=== PATIENT | female | born 1945 | race Caucasian/White ===

== ENCOUNTER 2017-03-18 11:21 | Inpatient (IN) | payer BC ==
[2017-03-18 11:53] VITALS: BMI 26.6
--- NOTE | 2017-03-18 13:46 | HP ---
CIWA Score - CIWA Score Nausea/Vomitin-No Nausea/No Vomiting Muscle Tremors: 4-Moderate,w/Arms Extend Anxiety: 4-Mod. Anxious/Guarded Agitation: 0-Normal Activity Paroxysmal Sweats: 3 Orientation: 0-Oriented Tacttile Disturbances: 1-Very Mild Itch/Numbness Auditory Disturbances: 1-Very Mild Visual Disturbances: 2-Mild Sensitivity Headache: 0-None Present CIWA-Ar Total Score: 15 Admission ROS S - HPI Chief Complaint: I am here for alcohol detox Allergies/Adverse Reactions: Allergies Allergy/AdvReac Type Severity Reaction Status Date / Time Penicillins Allergy Intermediate Rash Verified 03/18/17 13:09 History of Present Illness: 71 yo female with alcohol dependence x 9 years with an average of 10 - 12 [place] Lights per day, and hx of Hypothyroid, Hyperlipidemia, Paranoid Schizophrenia, Depression. Reports no prior hx of detox or rehab. 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) Musculoskeletal: reports: Joint Pain Integumentary: reports: No Symptoms Reported, Other (enial Linchen sclerosis, rosecia) Neuro: reports: Numbness (fingers b/t), Tingling Endocrine: reports: No Symptoms Reported Hematology: reports: No Symptoms Reported Psychiatric: reports: Orientated x3, Anxious, Depressed Other Systems: Reviewed and Negative Patient History - Patient Medical History Hx Anemia: No Hx Asthma: No Hx Chronic Obstructive Pulmonary Disease (COPD): No Hx Cancer: Yes (hx of 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 ) Hx Cardiac Disorders: No Hx Congestive Heart Failure: No Hx Hypertension: No Hx Hypercholesterolemia: Yes Hx Pacemaker: No HX Cerebrovascular Accident: No Hx Seizures: Yes (1982 hx drug induced seizure ) Hx Dementia: No Hx Diabetes: No Hx Gastrointestinal Disorders: Yes (GERD ) Hx Liver Disease: No Hx Genitourinary Disorders: No Hx Sexually Transmitted Disorders: No Hx Renal Disease (ESRD): No Hx Thyroid Disease: Yes (Hypothyroid) Hx Human Immunodeficiency Virus (HIV): No Hx Hepatitis C: No Hx Depression: No Hx Suicide Attempt: No Hx Bipolar Disorder: No Hx Schizophrenia: Yes (paranoid) - Patient Surgical History Past Surgical History: No Hx Neurologic Surgery: No Hx Cataract Extraction: No Hx Cardiac Surgery: No Hx Lung Surgery: No Hx Breast Surgery: No Hx Breast Biopsy: No Hx Abdominal Surgery: No Hx Appendectomy: No Hx Cholecystectomy: No Hx Genitourinary Surgery: No Hx Section: No Hx Orthopedic Surgery: No Hx Hysterectomy: No Other Surgical History: tonsilectomy, skin CA removal Anesthesia Reaction: No - PPD History Previous Implant?: Yes Documented Results: Negative w/o proof Implanted On Prior R Admission?: No PPD to be Administered?: Yes - Reproductive History Patient is a Female of Child Bearing Age (11 -55 yrs old): No (71 yo female ) - Smoking Cessation Smoking history: Never smoked - Substances Abused Alcohol Route: Oral Frequency: Daily Amount used: beer(10-12 oz cans) Age of first use: 24 Date of Last Use: 03/17/17 Family Disease History - Family Disease History Family Disease History: Other: Father (, Liver Cirrhosis, alcoholic), Mother (, Multiple Sclerosis ) Admission Physical Exam BHS - Vital Signs Vital Signs: Vital Signs - 24 hr 03/18/17 11:51 Temperature 96.9 F L Pulse Rate 79 Respiratory 18 Rate Blood Pressure 166/76 - Physical General Appearance: Yes: Anxious HEENTM: Yes: Hearing grossly Normal, Normal ENT Inspection, Normocephalic, Normal Voice, MAX, Pharynx Normal, Other (poor dentation) Respiratory: Yes: Chest Non-Tender, Lungs Clear, Normal Breath Sounds, No Respiratory Distress, No Accessory Muscle Use Neck: Yes: Within Normal Limits, No masses,lesions,Nodules, Trachea in good position Breast: Yes: Breast Exam Deferred Cardiology: Yes: Regular Rhythm, Regular Rate, S1, S2 Abdominal: Yes: Within Normal Limits, Normal Bowel Sounds, Non Tender, Flat, Soft Genitourinary: Yes: Within Normal Limits Back: Yes: Within Normal Limits, Normal Inspection Musculoskeletal: Yes: Within Normal Limits, full range of Motion, Gait Steady Extremities: Yes: Within Normal Limits, Normal Capillary Refill, Normal Inspection, Normal Range of Motion, Non-Tender Neurological: Yes: rn clinical resource II-XII NML intact, Fully Oriented, Alert, Motor Strength 5/5, Normal Response, Depressed Affect Integumentary: Yes: Within Normal Limits, Normal Color, Dry, Warm Lymphatic: Yes: Within Normal Limits - Diagnostic (1) Alcohol dependence with withdrawal Current Visit: Yes Status: Acute Qualifiers: Complication of substance-induced condition: uncomplicated Qualified Code(s ): F10.230 - Alcohol dependence with withdrawal, uncomplicated (2) Hypothyroid Current Visit: Yes Status: Chronic (3) Anxious appearance Current Visit: Yes Status: Acute (4) Hyperlipidemia Current Visit: Yes Status: Chronic (5) Psychiatric disorder Current Visit: Yes Status: Chronic Cleared for Admission [facility] - Detox or Rehab [facility] Level of Care: Medically Managed Detox Regimen/Protocol: Librium [facility] Breath Alcohol Content Breath Alcohol Content: 0 Urine Pregancy Test - Result Urine Test Results: Negative- NO Line Present Urine Drug Screen - Results Drug Screen Negative: Yes
[2017-03-18] MEDS ORDERED: MENTHOL/PHENOL 1 EACH UD MM PRN (14:12)
[2017-03-18] MEDS ORDERED: P-EPHED 60MG/TRIPROLIDI 2.5MG TABLET PO PRN (14:12)
[2017-03-18] MEDS ORDERED: guaiFENesin/D-METHORPHAN HB 10 ML UNIT-DOSE CUPS PO PRN (14:12)
[2017-03-18] MEDS ORDERED: LOPERAMIDE HCL 2 MG CAPSULE PO PRN (14:12)
[2017-03-18] MEDS ORDERED: IBUPROFEN 400 MG TABLET (FP) PO PRN (14:12)
[2017-03-18] MEDS ORDERED: MAG HYDROX/AL HYDROX/SIMETH 30 ML UNIT-DOSE CUP PO PRN (14:12)
[2017-03-18] MEDS ORDERED: MAGNESIUM HYDROX 2400MG/30ML ORAL SUSPENSION 30 ML CUP PO PRN (14:12)
[2017-03-18] MEDS ORDERED: hydrOXYzine PAMOATE 50 MG CAPSULE (FP) PO PRN (14:12)
[2017-03-18] MEDS ORDERED: MAGNESIUM CITRATE 300 ML BOTTLE PO PRN (14:12)
[2017-03-18] MEDS ORDERED: ACETAMINOPHEN 325 MG TABLET (FP) PO PRN (14:12)
[2017-03-18] MEDS ORDERED: chlordiazePOXIDE HCL 25 MG CAPSULE PO PRN (14:12)
[2017-03-18] MEDS: chlordiazePOXIDE HCL 25 MG CAPSULE PO ONE ×2 (17:32→17:54)
[2017-03-18] MEDS: chlordiazePOXIDE HCL 25 MG CAPSULE PO SCH ×2 (17:41→22:55)
[2017-03-18] MEDS: CYANOCOBALAMIN 1,000 MCG TABLET (FP) PO SCH (18:02)
[2017-03-18] MEDS: THIAMINE HCL 100 MG TABLET (FP) PO SCH (22:55)
[2017-03-18] MEDS: ATORVASTATIN CA 20 MG TABLET (FP) PO SCH (22:56)
[2017-03-19] MEDS: chlordiazePOXIDE HCL 25 MG CAPSULE PO SCH ×4 (05:19→22:19)
[2017-03-19] MEDS ORDERED: LEVOTHYROXINE NA 50 MCG TABLET (FP) PO SCH (07:00)
[2017-03-19] MEDS: LEVOTHYROXINE NA 25 MCG TABLET (FP) PO SCH (07:51)
--- NOTE | 2017-03-19 08:51 | EKG ---
Test Reason : Blood Pressure : / mmHG Vent. Rate : 083 BPM Atrial Rate : 083 BPM P-R Int : 202 ms QRS Dur : 066 ms QT Int : 360 ms P-R-T Axes : 047 026 079 degrees QTc Int : 423 ms NORMAL SINUS RHYTHM LOW VOLTAGE QRS BORDERLINE ECG NO PREVIOUS ECGS AVAILABLE Confirmed by Arsh Lucero ([id number]) on 03/19/2017 8:51:31 AM Referred By: Jhonatan Araujo Confirmed By:Arsh Lucero
--- NOTE | 2017-03-19 09:43 | CONSULT ---
[facility] Psychiatric Consult - Data Date of interview: 03/19/17 Admission source: [facility] Identifying data: This is 71 years old female with Schozpjrenia, with history of psychiatric hospitalizations, intoxicated with: Alcohol, Substance Abuse History: - Smoking Cessation. Smoking history: Never smoked. - Substances Abused. Alcohol. Route: Oral. Frequency: Daily. Amount used : beer(10-12 oz cans). Age of first use: 24. Date of Last Use: 03/17/17 Medical History: Hypothyroidism, Hyperlipidemia Psychiatric History: Patient suffers from Paranoid Schizophrenia with most recent psychiatric hospitalization on 2009 [facility]. currently stable on [id number] 100mg poqd. Trazodone 50mg po qhs. Trilafon 4mg poqd Physical/Sexual Abuse/Trauma History: Denies Additional Comment: 100mg poqd. Trazodone 50mg po qhs. Trilafon 4mg poqd Mental Status Exam - Mental Status Exam Alert and Oriented to: Person Cognitive Function: Fair Patient Appearance: Unkempt Mood: Anxious Affect: Euthymic Patient Behavior: Cooperative Speech Pattern: Delayed Voice Loudness: Mildly Soft/Quiet Thought Process: Circumstantial, Goal Oriented Thought Disorder: Being Controlled Hallucinations: Denies Suicidal Ideation: Denies Homicidal Ideation: Denies Insight/Judgement: Fair Sleep: Difficulty falling asleep Appetite: Weight gain Muscle strength/Tone: Mild Hypotonicity Gait/Station: Shuffling Additional Comments: 100mg poqd. Trazodone 50mg po qhs. Trilafon 4mg poqd Psychiatric Findings - Problem List ([place] 1, 2,3) (1) Paranoid schizophrenia Current Visit: Yes Status: Acute (2) Alcohol dependence with withdrawal Current Visit: Yes Status: Acute Qualifiers: Complication of substance-induced condition: uncomplicated Qualified Code(s ): F10.230 - Alcohol dependence with withdrawal, uncomplicated (3) Hyperlipidemia Current Visit: Yes Status: Chronic (4) Hypothyroid Current Visit: Yes Status: Chronic (5) Psychiatric disorder Current Visit: Yes Status: Chronic - Initial Treatment Plan Initial Treatment Plan: 100mg poqd. Trazodone 50mg po qhs. Trilafon 4mg poqd
[2017-03-19 10:22] LABS: HEMATOCRIT 40.1 % (32.4-45.2); HEMOGLOBIN 13.3 GM/dL (10.7-15.3); MCH 30.7 pg (25.7-33.7); MCHC 33.2 g/dl (32.0-36.0); MEAN CELL VOLUME 92.6 fl (80-96); MEAN PLT VOLUME 7.8 fl (7.5-11.1); PLATELET COUNT 183 K/MM3 (134-434); RBC 4.33 M/mm3 (3.60-5.2); RDW 13.4 % (11.6-15.6)
[2017-03-19 10:24] LABS: ALBUMIN 3.7 g/dl (3.4-5.0); ALK PHOS 117 U/L (45-117); ANION GAP 7 (8-16); BILIRUBIN,TOTAL 0.3 mg/dL (0.2-1.0); BLOOD UREA NITROGEN 13 mg/dL (7-18); CALCIUM 8.4 mg/dL (8.5-10.1); CHLORIDE 102 mmol/L (98-107); CO2 28 mmol/L (21-32); CREATININE 0.8 mg/dL (0.55-1.02); GLUCOSE,RANDOM 98 mg/dL (74-106); POTASSIUM 4.5 mmol/L (3.5-5.1); SGOT/AST 15 U/L (15-37); SGPT/ALT 26 U/L (12-78); SODIUM 137 mmol/L (136-145); TOT PROT 6.8 g/dl (6.4-8.2)
[2017-03-19] MEDS: CYANOCOBALAMIN 1,000 MCG TABLET (FP) PO SCH (10:58)
[2017-03-19] MEDS: PANTOPRAZOLE 40 MG TABLET (FP) PO SCH (10:58)
[2017-03-19] MEDS: PRENATAL VITAMINS W/ FOLIC ACID TABLET (FP) PO SCH (10:58)
--- NOTE | 2017-03-19 14:36 | PN ---
S CIWA - CIWA Score Nausea/Vomitin Muscle Tremors: 4-Moderate,w/Arms Extend Anxiety: 4-Mod. Anxious/Guarded Agitation: 4-Moderately Restless Paroxysmal Sweats: 2 Orientation: 0-Oriented Tacttile Disturbances: 0-None Auditory Disturbances: 0-None Visual Disturbances: 0-None Headache: 0-None Present CIWA-Ar Total Score: 17 BHS Progress Note (SOAP) Subjective: shakes sleep disturbance jittery Objective: 03/19/17 14:35 Vital Signs Temperature 97.9 F 03/19/17 09:26 Pulse Rate 86 03/19/17 09:26 Respiratory Rate 18 03/19/17 09:26 Blood Pressure 147/72 03/19/17 09:26 O2 Sat by Pulse Oximetry (%) Laboratory Last Values WBC 5.0 K/mm3 (4.0-10.0) 03/19/17 07:00 RBC 4.33 M/mm3 (3.60-5.2) 03/19/17 07:00 Hgb 13.3 GM/dL (10.7-15.3) 03/19/17 07:00 Hct 40.1 % (32.4-45.2) 03/19/17 07:00 MCV 92.6 fl (80-96) 03/19/17 07:00 MCH 30.7 pg (25.7-33.7) 03/19/17 07:00 MCHC 33.2 g/dl (32.0-36.0) 03/19/17 07:00 RDW 13.4 % (11.6-15.6) 03/19/17 07:00 Plt Count 183 K/MM3 (134-434) 03/19/17 07:00 MPV 7.8 fl (7.5-11.1) 03/19/17 07:00 Sodium 137 mmol/L (136-145) 03/19/17 07:00 Potassium 4.5 mmol/L (3.5-5.1) 03/19/17 07:00 Chloride 102 mmol/L (98-107) 03/19/17 07:00 Carbon Dioxide 28 mmol/L (21-32) 03/19/17 07:00 Anion Gap 7 (8-16) L 03/19/17 07:00 BUN 13 mg/dL (7-18) 03/19/17 07:00 Creatinine 0.8 mg/dL (0.55-1.02) 03/19/17 07:00 Creat Clearance w eGFR > 60 (>60) 03/19/17 07:00 Random Glucose 98 mg/dL (74-106) 03/19/17 07:00 Calcium 8.4 mg/dL (8.5-10.1) L 03/19/17 07:00 Total Bilirubin 0.3 mg/dL (0.2-1.0) 03/19/17 07:00 AST 15 U/L (15-37) 03/19/17 07:00 ALT 26 U/L (12-78) 03/19/17 07:00 Alkaline Phosphatase 117 U/L (45-117) 03/19/17 07:00 Total Protein 6.8 g/dl (6.4-8.2) 03/19/17 07:00 Albumin 3.7 g/dl (3.4-5.0) 03/19/17 07:00 RPR Titer Nonreactive (NONREACTIVE) 03/19/17 07:00 HIV 1&2 Antibody Screen Negative 03/19/17 07:00 HIV P24 Antigen Negative 03/19/17 07:00 labs noted Assessment: 03/19/17 14:36 withdrawal sx Plan: continue detox
[2017-03-19] MEDS: THIAMINE HCL 100 MG TABLET (FP) PO SCH (22:19)
[2017-03-19] MEDS: ATORVASTATIN CA 20 MG TABLET (FP) PO SCH (22:19)
[2017-03-20] MEDS: chlordiazePOXIDE HCL 25 MG CAPSULE PO SCH ×2 (05:34→10:47)
[2017-03-20] MEDS: LEVOTHYROXINE NA 25 MCG TABLET (FP) PO SCH (06:35)
[2017-03-20] MEDS: CYANOCOBALAMIN 1,000 MCG TABLET (FP) PO SCH (10:47)
[2017-03-20] MEDS: PRENATAL VITAMINS W/ FOLIC ACID TABLET (FP) PO SCH (10:47)
[2017-03-20] MEDS: PANTOPRAZOLE 40 MG TABLET (FP) PO SCH (10:47)
--- NOTE | 2017-03-20 14:38 | PN ---
S CIWA - CIWA Score Nausea/Vomitin Muscle Tremors: 2 Anxiety: 3 Agitation: 2 Paroxysmal Sweats: No Perspiration Orientation: 0-Oriented Tacttile Disturbances: 0-None Auditory Disturbances: 0-None Visual Disturbances: 0-None Headache: 2-Mild CIWA-Ar Total Score: 12 BHS Progress Note (SOAP) Objective: 03/20/17 14:37 Laboratory Tests 03/18/17 03/19/17 03/19/17 07:00 07:00 07:00 WBC 5.0 RBC 4.33 Hgb 13.3 Hct 40.1 MCV 92.6 MCH 30.7 MCHC 33.2 RDW 13.4 Plt Count 183 MPV 7.8 Sodium 137 Potassium 4.5 Chloride 102 Carbon Dioxide 28 Anion Gap 7 L BUN 13 Creatinine 0.8 Creat Clearance w eGFR > 60 Random Glucose 98 Calcium 8.4 L Total Bilirubin 0.3 AST 15 ALT 26 Alkaline Phosphatase 117 Total Protein 6.8 Albumin 3.7 RPR Titer Hepatitis C Antibody <0.1 HIV 1&2 Antibody Screen HIV P24 Antigen 03/19/17 03/19/17 07:00 07:00 WBC RBC Hgb Hct MCV MCH MCHC RDW Plt Count MPV Sodium Potassium Chloride Carbon Dioxide Anion Gap BUN Creatinine Creat Clearance w eGFR Random Glucose Calcium Total Bilirubin AST ALT Alkaline Phosphatase Total Protein Albumin RPR Titer Nonreactive Hepatitis C Antibody HIV 1&2 Antibody Screen Negative HIV P24 Antigen Negative Vital Signs - 24 hr 03/19/17 03/19/17 03/19/17 14:42 18:39 23:12 Temperature 95.2 F L 98.6 F 98.1 F Pulse Rate 84 81 84 Respiratory 20 18 18 Rate Blood Pressure 153/74 124/75 161/70 03/20/17 03/20/17 03/20/17 00:30 03:30 06:00 Temperature 97.5 F L Pulse Rate 78 Respiratory 18 18 18 Rate Blood Pressure 149/75 03/20/17 09:39 Temperature 97.8 F Pulse Rate 90 Respiratory 18 Rate Blood Pressure 140/77 Assessment: 03/20/17 14:37 ongoing withdrawal Plan: continue detox protocol
[2017-03-20] MEDS: chlordiazePOXIDE 5 MG CAPSULE PO SCH ×2 (17:25→22:25)
[2017-03-20] MEDS: ATORVASTATIN CA 20 MG TABLET (FP) PO SCH (22:25)
[2017-03-20] MEDS: THIAMINE HCL 100 MG TABLET (FP) PO SCH (22:25)
[2017-03-21] MEDS: LEVOTHYROXINE NA 25 MCG TABLET (FP) PO SCH (06:07)
[2017-03-21] MEDS: chlordiazePOXIDE 5 MG CAPSULE PO SCH ×2 (06:07→10:54)
[2017-03-21] MEDS: PRENATAL VITAMINS W/ FOLIC ACID TABLET (FP) PO SCH (10:54)
[2017-03-21] MEDS: CYANOCOBALAMIN 1,000 MCG TABLET (FP) PO SCH (10:54)
[2017-03-21] MEDS: PANTOPRAZOLE 40 MG TABLET (FP) PO SCH (10:54)
--- NOTE | 2017-03-21 15:56 | PN ---
BHS Progress Note (SOAP) Subjective: cold sweats, tired Objective: 03/21/17 15:55 Vital Signs Temperature 97.7 F 03/21/17 13:23 Pulse Rate 95 H 03/21/17 13:23 Respiratory Rate 18 03/21/17 13:23 Blood Pressure 135/56 03/21/17 13:23 O2 Sat by Pulse Oximetry (%) pt aox3 in nad ambulating Assessment: 03/21/17 15:55 withdrawal sx;s Plan: continue detox increase fluids d/c in am
[2017-03-21] MEDS: chlordiazePOXIDE HCL 10 MG CAPSULE PO SCH ×2 (17:46→22:28)
--- NOTE | 2017-03-21 18:05 | PN ---
JITENDRA Progress Note Note: Psychiatric nurse practitioner note: Family Preservation Caseworker approached patient concerning her psychiatric medications. Reports currently taking zoloft 100mg po daily, Trilafon 4mg qhs, and trazodone 50mg qhs. Patient's pharmacy contacted and able to verify patient's medications. Reports recently taking her medications on Sunday. Medications ordered. Verbal consent given. Will continue to monitor.
[2017-03-21] MEDS ORDERED: traZODone HCL 50 MG TABLET (FP) PO SCH (22:00)
[2017-03-21] MEDS ORDERED: PERPHENAZINE 4 MG TABLET PO SCH (22:00)
[2017-03-21] MEDS: THIAMINE HCL 100 MG TABLET (FP) PO SCH (22:28)
[2017-03-21] MEDS: ATORVASTATIN CA 20 MG TABLET (FP) PO SCH (22:29)
[2017-03-22] MEDS: chlordiazePOXIDE HCL 10 MG CAPSULE PO SCH (05:59)
[2017-03-22] MEDS: LEVOTHYROXINE NA 25 MCG TABLET (FP) PO SCH (06:00)
[2017-03-22 06:36] VITALS: TEMP 97.2
[2017-03-22 09:51] VITALS: BP 135/67; PULSE 93
[2017-03-22] MEDS ORDERED: SERTRALINE HCL 50 MG TABLET (FP) PO SCH (10:00)
--- NOTE | 2017-03-22 11:52 | DS ---
[facility] Detox Discharge Summary Admission Date: 03/18/17 Discharge Date: 03/22/17 - History Present History: Alcohol Dependence - Physical Exam Results Vital Signs: Vital Signs Temperature 97.2 F L 03/22/17 09:51 Pulse Rate 93 H 03/22/17 09:51 Respiratory Rate 18 03/22/17 09:51 Blood Pressure 135/67 03/22/17 09:51 O2 Sat by Pulse Oximetry (%) Pertinent Admission Physical Exam Findings: withdrawal sx Laboratory Last Values WBC 5.0 K/mm3 (4.0-10.0) 03/19/17 07:00 RBC 4.33 M/mm3 (3.60-5.2) 03/19/17 07:00 Hgb 13.3 GM/dL (10.7-15.3) 03/19/17 07:00 Hct 40.1 % (32.4-45.2) 03/19/17 07:00 MCV 92.6 fl (80-96) 03/19/17 07:00 MCH 30.7 pg (25.7-33.7) 03/19/17 07:00 MCHC 33.2 g/dl (32.0-36.0) 03/19/17 07:00 RDW 13.4 % (11.6-15.6) 03/19/17 07:00 Plt Count 183 K/MM3 (134-434) 03/19/17 07:00 MPV 7.8 fl (7.5-11.1) 03/19/17 07:00 Sodium 137 mmol/L (136-145) 03/19/17 07:00 Potassium 4.5 mmol/L (3.5-5.1) 03/19/17 07:00 Chloride 102 mmol/L (98-107) 03/19/17 07:00 Carbon Dioxide 28 mmol/L (21-32) 03/19/17 07:00 Anion Gap 7 (8-16) L 03/19/17 07:00 BUN 13 mg/dL (7-18) 03/19/17 07:00 Creatinine 0.8 mg/dL (0.55-1.02) 03/19/17 07:00 Creat Clearance w eGFR > 60 (>60) 03/19/17 07:00 Random Glucose 98 mg/dL (74-106) 03/19/17 07:00 Calcium 8.4 mg/dL (8.5-10.1) L 03/19/17 07:00 Total Bilirubin 0.3 mg/dL (0.2-1.0) 03/19/17 07:00 AST 15 U/L (15-37) 03/19/17 07:00 ALT 26 U/L (12-78) 03/19/17 07:00 Alkaline Phosphatase 117 U/L (45-117) 03/19/17 07:00 Total Protein 6.8 g/dl (6.4-8.2) 03/19/17 07:00 Albumin 3.7 g/dl (3.4-5.0) 03/19/17 07:00 RPR Titer Nonreactive (NONREACTIVE) 03/19/17 07:00 Hepatitis C Antibody <0.1 s/co ratio (0.0-0.9) 03/18/17 07:00 HIV 1&2 Antibody Screen Negative 03/19/17 07:00 HIV P24 Antigen Negative 03/19/17 07:00 lab noted - Treatment Hospital Course: Detox Protocol Followed, Detoxed Safely, Responded well, Discharged Condition Good, Rehab Referral Accepted Patient has Accepted a Rehab Referral to: aftercare as per counselor arranged - Medication Discharge Medications: Ambulatory Orders Atorvastatin Ca [Lipitor] 20 mg PO DAILY 03/18/17 Cyanocobalamin [Vitamin B12 -] 1,000 mcg PO DAILY 03/18/17 Esomeprazole Magnesium 40 mg PO DAILY 03/18/17 Levothyroxine [Synthroid -] 50 mcg PO DAILY 03/18/17 Multivit-Min/Iron Fum/Folic AC [Arivy-Wanuyan-Fsrdvkrl Tablet] 1 each PO DAILY 03/18/17 Perphenazine [Trilafon] 4 mg PO DAILY 03/18/17 Sertraline HCl [Zoloft -] 100 mg PO DAILY 03/18/17 Trazodone HCl [Desyrel -] 50 mg PO HS 03/18/17 - AMA Did Patient Leave Against Medical Advice: No
== END 2017-03-22 11:00 | disposition home or self-care (01) | DRG 897 ==
LOC: YASAS 11:21 → Y6N 16:11
PROVIDERS: ADMIT Internal Medicine; ATTEND Internal Medicine
PROC: HZ2ZZZZ Detoxification Services for Substance Abuse Treatment (ICD-10-PCS; principal; 2017-03-18)
DX: F10.230 Alcohol dependence with withdrawal, uncomplicated (principal); F20.0 Paranoid schizophrenia; E78.5 Hyperlipidemia, unspecified; E30.9 Disorder of puberty, unspecified; K21.9 Gastro-esophageal reflux disease without esophagitis; Z85.828 Personal history of other malignant neoplasm of skin; Z88.0 Allergy status to penicillin; Z86.69 Personal history of other diseases of the nervous system and sense organs
CPT/HCPCS: 36415; 80053; 85027; 86593; 86803; 87389; 93005; 93010

== ENCOUNTER 2019-09-01 10:48 | Inpatient (IN) | payer OTHER ==
--- NOTE | 2019-09-01 11:23 | BHS.RME ---
Substance Use & Tx History - Substance Use History Alcohol Substance amount: 10-17 beers Frequency of use: Daily Substance route: Oral Date of Last Use: 08/31/19 Physical/Psych/Mental Status - Behavior General Behavior: Increased activity (restlessness, agitation) Eye Contact: Normal - Cooperativeness Cooperativeness: Cooperative - Thinking Thought Processes: Tight, Logical, Goal Directed - Physical Health Problems Is patient presently having any pain?: No Does patient presently have any injuries (include location): No Does patient currently have a fever: No Is patient : No CIWA Nausea/Vomitin-No Nausea/No Vomiting Muscle Tremors: 2 Anxiety: 3 Agitation: 2 Paroxysmal Sweats: 5 Orientation: 0-Oriented Tacttile Disturbances: 0-None Auditory Disturbances: 0-None Visual Disturbances: 0-None Headache: 2-Mild CIWA-Ar Total Score: 14
--- NOTE | 2019-09-01 12:10 | HP ---
CIWA Score Nausea/Vomitin-No Nausea/No Vomiting Muscle Tremors: 2 Anxiety: 3 Agitation: 2 Paroxysmal Sweats: 5 Orientation: 0-Oriented Tacttile Disturbances: 0-None Auditory Disturbances: 0-None Visual Disturbances: 0-None Headache: 2-Mild CIWA-Ar Total Score: 14 - Admission Criteria [facility] Guidelines: Admission for Medically Managed Detox: Requires at least one of the followin. CIWA greater than 12 2. Seizures within the past 24 hours 3. Delirium tremens within the past 24 hours 4. Hallucinations within the past 24 hours 5. Acute intervention needed for co occurring medical disorder 6. Acute intervention needed for co occurring psychiatric disorder 7. Severe withdrawal that cannot be handled at a lower level of care (continued vomiting, continued diarrhea, abnormal vital signs) requiring intravenous medication and/or fluids 8. Admitting History and Physical - Admission Chief Complaint: Ms. Iglesias is a 74 yo woman who presents to [facility] stating "I want to stop drinking". History of Present Illness: Ms. Iglesias is a 74 yo woman who presents to [facility] stating "I want to stop drinking". She last completed detox in February 2017. She relapsed immediately upon discharge. PMH: hypothyroidism, HLD, fatty liver, chronic diarrhea PSH: Breast biopsy, benign Psych: paranoid schizophrenia, Trazadone, Serteraline, perfenazine SOIC: lives [facility] in [place], drinks as well Legal: none Substance Use History Alcohol Substance amount: 10-17 beers Frequency of use: Daily Substance route: Oral Date of Last Use: 08/31/19 Began drinking age 24y. No hx of seizures. Has had syncopal spell 5 monts ago. 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 Meets criteria for admission due to high risk of relapse, comorbid psychiatric disorder History Source: Patient Limitations to Obtaining History: No Limitations - Smoking History Smoking history: Never smoked Admission [facility] Allergies/Adverse Reactions: Allergies Allergy/AdvReac Type Severity Reaction Status Date / Time Penicillins Allergy Intermediate Rash Verified 03/18/17 13:09 Exam Limitations: No Limitations - Ebola screening Have you traveled outside of the country in the last 21 days: No Have you been sick,other than usual withdrawal symptoms: No Do you have a fever: No - Review of Systems Constitutional: No Symptoms Reported EENT: reports: No Symptoms Reported Respiratory: reports: No Symptoms reported Cardiac: reports: No Symptoms Reported GI: reports: Diarrhea (3-4 x per day, since January 2019, Dr. Justice (GI) told pt related to beer intake) : reports: Incontinence (stress incontinence) Musculoskeletal: reports: No Symptoms Reported Integumentary: reports: Other (rosacea) Neuro: reports: Headache Endocrine: reports: Other (saw PCP August 04, told labs normal) Hematology: reports: No Symptoms Reported Psychiatric: reports: Anxious Patient History - Patient Medical History Hx Anemia: No Hx Asthma: No Hx Chronic Obstructive Pulmonary Disease (COPD): No Hx Cancer: Yes (hx of 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 ) Hx Cardiac Disorders: No Hx Congestive Heart Failure: No Hx Hypertension: No Hx Hypercholesterolemia: Yes Hx Pacemaker: No HX Cerebrovascular Accident: No Hx Seizures: Yes (1982 drug induced seizure ) Hx Dementia: No Hx Diabetes: No Hx Gastrointestinal Disorders: Yes (GERD ) Hx Liver Disease: No Hx Genitourinary Disorders: No Hx Sexually Transmitted Disorders: No Hx Renal Disease (ESRD): No Hx Thyroid Disease: Yes (Hypothyroid) Hx Human Immunodeficiency Virus (HIV): No Hx Hepatitis C: No Hx Depression: No Hx Suicide Attempt: No Hx Bipolar Disorder: No Hx Schizophrenia: Yes (paranoid) - Patient Surgical History Past Surgical History: No Hx Neurologic Surgery: No Hx Cataract Extraction: No Hx Cardiac Surgery: No Hx Lung Surgery: No Hx Breast Surgery: No Hx Breast Biopsy: No Hx Abdominal Surgery: No Hx Appendectomy: No Hx Cholecystectomy: No Hx Genitourinary Surgery: No Hx Section: No Hx Orthopedic Surgery: No Hx Hysterectomy: No Other Surgical History: tonsilectomy, skin CA removal Anesthesia Reaction: No - PPD History Date: 03/20/17 - Smoking Cessation Smoking history: Never smoked Admission Physical Exam BHS - Physical General Appearance: Yes: Anxious HEENTM: Yes: EOMI, Hearing grossly Normal, Normocephalic, Normal Voice Respiratory: Yes: Lungs Clear, No Accessory Muscle Use Neck: Yes: Within Normal Limits, Supple Breast: Yes: Breast Exam Deferred Cardiology: Yes: Regular Rhythm, Regular Rate, S1, S2 Abdominal: Yes: Normal Bowel Sounds, Non Tender, Flat, Soft Genitourinary: Yes: Other (had incontinence pad on) Back: Yes: Within Normal Limits, Normal Inspection Musculoskeletal: Yes: Gait Steady Extremities: Yes: Normal Inspection, Non-Tender Neurological: Yes: Alert, Normal Response Integumentary: Yes: Normal Color, Dry, Warm - Diagnostic (1) Paranoid schizophrenia Current Visit: Yes Status: Chronic (2) Alcohol dependence with withdrawal Current Visit: Yes Status: Acute Qualifiers: Complication of substance-induced condition: uncomplicated Qualified Code(s): F10.230 - Alcohol dependence with withdrawal, uncomplicated (3) Hyperlipidemia Current Visit: No Status: Chronic (4) Hypothyroid Current Visit: No Status: Chronic Cleared for Admission [facility] - Detox or Rehab [facility] Level of Care: Medically Managed Detox Regimen/Protocol: Librium Inpatient Rehab Admission - Rehab Decision to Admit Inpatient rehab admission?: No
[2019-09-01] MEDS ORDERED: ACETAMINOPHEN 325 MG TABLET (FP) PO PRN ×2 (12:23)
[2019-09-01] MEDS ORDERED: BISMUTH SUBSALICYLATE 524 MG/30 ML UD PO PRN (12:23)
[2019-09-01] MEDS ORDERED: METHOCARBAMOL 500 MG TABLET PO PRN (12:23)
[2019-09-01] MEDS ORDERED: IBUPROFEN 400 MG TABLET (FP) PO PRN (12:23)
[2019-09-01] MEDS ORDERED: MAG HYDROX/AL HYDROX/SIMETH 30 ML UNIT-DOSE CUP PO PRN (12:23)
[2019-09-01] MEDS ORDERED: MAGNESIUM CITRATE 300 ML BOTTLE PO PRN (12:23)
[2019-09-01] MEDS ORDERED: chlordiazePOXIDE HCL 25 MG CAPSULE PO PRN (12:23)
[2019-09-01] MEDS ORDERED: MENTHOL/PHENOL 1 EACH UD MM PRN (12:23)
[2019-09-01] MEDS ORDERED: MAGNESIUM HYDROX 2400MG/30ML ORAL SUSPENSION 30 ML CUP PO PRN (12:23)
[2019-09-01] MEDS ORDERED: ONDANSETRON *ODT* 4 MG TABLET SL PRN (12:23)
[2019-09-01 12:51] VITALS: BMI 26.2
[2019-09-01] MEDS ORDERED: PRENATAL VITAMINS W/ FOLIC ACID TABLET (FP) PO SCH (14:00)
--- NOTE | 2019-09-01 14:02 | EKG ---
Test Reason : Blood Pressure : / mmHG Vent. Rate : 072 BPM Atrial Rate : 072 BPM P-R Int : 178 ms QRS Dur : 066 ms QT Int : 386 ms P-R-T Axes : 009 021 054 degrees QTc Int : 422 ms NORMAL SINUS RHYTHM NORMAL ECG WHEN COMPARED WITH ECG OF 18-MAR-2017 16:59, NO SIGNIFICANT CHANGE WAS FOUND Confirmed by Berna De La Cruz ([id number]) on 09/01/2019 2:02:17 PM Referred By: Confirmed By:Berna De La Cruz
--- NOTE | 2019-09-01 14:11 | CONSULT ---
[facility] Psychiatric Consult - Data Date of interview: 09/01/19 Admission source: Self-referred Identifying data: Ms Iglesias is a 74 years old single female, retired clerk of court receiving Social security, domiciled seeking detox treatment for alcohol Substance Abuse History: Reports history of alcohol use. Refer to addiction counselor's summary for further information Medical History: Significant for dyslipidemia, hypothyroidism, GERD, history of alcohol related seizure, biopsy of both breasts and removal of carcinoma of forehead in 2016. Psychiatric History: Patient is known for one previous admission to this facility. Reports that she started started receiving psychotherapy on & off since age 20 for depression and anxiety. Reports that age 36, she was diagnosed with Paranoid Schizophrenia and started on psychotropic medications. Reports multiple psychiatric hospitalizations at only 2 facilities, [facility] in 1981, 1982, 1983 and [facility] in 1998 and 2009. Reports that her psychiaric treatment is now provided by her primary care physician. She is currently prescribed Trilafon 4 mg/hs, Zoloft 100 mg/day and Trazadone 50 mg/hs. Reports that she used to receive OPD care at [facility] in [place], [place]. Denies previous suicidal attempt. At present, denies experiencing psychotic symptoms, S/H ideations. However, reports feeling anxious and sleeping poorly. Requests to continue taking her psychotropic medications except that Trazadone 50 mg/hs be ordered as prn because she is taking Librium. Physical/Sexual Abuse/Trauma History: Denies history of abuse as a child or DV relationship as an adult Mental Status Exam - Mental Status Exam Alert and Oriented to: Time, Place, Person Cognitive Function: Fair Patient Appearance: Well Groomed Mood: Anxious Affect: Appropriate Patient Behavior: Cooperative Speech Pattern: Clear Voice Loudness: Normal Thought Process: Intact, Goal Oriented Hallucinations: Denies Suicidal Ideation: Denies Homicidal Ideation: Denies Insight/Judgement: Poor Sleep: Poorly Appetite: Good Muscle strength/Tone: Normal Gait/Station: Normal Psychiatric Findings - Problem List ([place] 1, 2,3) (1) Paranoid schizophrenia Current Visit: Yes Status: Chronic (2) Alcohol-induced anxiety disorder Current Visit: Yes Status: Acute (3) Alcohol-induced sleep disorder Current Visit: Yes Status: Acute (4) Alcohol dependence with withdrawal Current Visit: Yes Status: Acute Qualifiers: Complication of substance-induced condition: uncomplicated Qualified Code(s): F10.230 - Alcohol dependence with withdrawal, uncomplicated (5) Hyperlipidemia Current Visit: No Status: Chronic (6) Hypothyroid Current Visit: No Status: Chronic (7) GERD (gastroesophageal reflux disease) Current Visit: Yes Status: Chronic - Initial Treatment Plan Initial Treatment Plan: 1) Continue Zoloft 100 mg po daily, Trilafon 4 mg po HS. 2) Start Trazadone 50 mg po HS prn for insomnia as requested by patient. 3) Continue inpatient detoxification
[2019-09-01] MEDS ORDERED: traZODone HCL 50 MG TABLET (FP) PO PRN (14:27)
[2019-09-01] MEDS: hydrOXYzine PAMOATE 25 MG CAPSULE (FP) PO SCH ×3 (14:50→22:47)
--- NOTE | 2019-09-01 15:01 | PN ---
S Progress Note Note: received nurse report that ms chun has trouble swallow multivitamin pill form discontinue multivitamin pill form begin multivitamin liquid form
[2019-09-01 16:56] LABS: HEMATOCRIT 40.1 % (32.4-45.2); HEMOGLOBIN 13.6 GM/dL (10.7-15.3); MCH 31.1 pg (25.7-33.7); MCHC 33.8 g/dl (32.0-36.0); MEAN CELL VOLUME 92.1 fl (80-96); MEAN PLT VOLUME 8.1 fl (7.5-11.1); PLATELET COUNT 204 K/MM3 (134-434); RBC 4.36 M/mm3 (3.60-5.2); RDW 13.1 % (11.6-15.6); WHITE BLOOD COUNT 6.6 K/mm3 (4.0-10.0)
[2019-09-01 17:03] LABS: BILIRUBIN,TOTAL 0.4 mg/dL (0.2-1); CALCIUM 9.2 mg/dL (8.5-10.1); CREATININE 0.7 mg/dL (0.55-1.3); POTASSIUM 4.4 mmol/L (3.5-5.1); TOT PROT 7.2 g/dl (6.4-8.2)
[2019-09-01] MEDS: chlordiazePOXIDE HCL 25 MG CAPSULE PO SCH ×2 (17:35→22:47)
[2019-09-01] MEDS: ATORVASTATIN CA 20 MG TABLET (FP) PO SCH (22:47)
[2019-09-01] MEDS: THIAMINE HCL 100 MG TABLET (FP) PO SCH (22:47)
[2019-09-01] MEDS: MELATONIN 5 MG TABLETS PO SCH (22:51)
[2019-09-01] MEDS: PERPHENAZINE 4 MG TABLET PO SCH (23:25)
[2019-09-02] MEDS: chlordiazePOXIDE HCL 25 MG CAPSULE PO SCH ×4 (05:26→22:30)
[2019-09-02] MEDS: hydrOXYzine PAMOATE 25 MG CAPSULE (FP) PO SCH ×5 (05:26→22:29)
[2019-09-02] MEDS: LEVOTHYROXINE NA 25 MCG TABLET (FP) PO SCH (06:24)
[2019-09-02] MEDS ORDERED: SERTRALINE HCL 50 MG TABLET (FP) PO SCH (10:00)
[2019-09-02] MEDS: MULTIVIT-MINERALS ORAL LIQUID PO SCH (10:19)
[2019-09-02] MEDS: CYANOCOBALAMIN 1,000 MCG TABLET (FP) PO SCH (10:20)
[2019-09-02] MEDS: SERTRALINE HCL 50 MG TABLET (FP) PO SCH (10:20)
--- NOTE | 2019-09-02 13:54 | PN ---
[facility] CIWA - CIWA Score Nausea/Vomitin-Mild Nausea/No Vomiting Muscle Tremors: 2 Anxiety: 2 Agitation: 2 Paroxysmal Sweats: 2 Orientation: 0-Oriented Tacttile Disturbances: 0-None Auditory Disturbances: 0-None Visual Disturbances: 2-Mild Sensitivity Headache: 0-None Present CIWA-Ar Total Score: 11 S Progress Note (SOAP) Subjective: 74 years old female admitted on 09/01/19 for alcohol withdrawal sx management treating with librium detox regiment ate breakfast resting in bed feeling tired loos stool x 1 imodium 4 mg po x 1 Objective: 09/02/19 13:56 Vital Signs - 24 hr 09/01/19 09/01/19 09/01/19 16:40 20:39 21:39 Temperature 97.1 F L 97.1 F L Pulse Rate 74 81 Respiratory 16 16 Rate Blood Pressure 178/81 H 145/72 O2 Sat by Pulse 97 Oximetry (%) 09/02/19 09/02/19 09/02/19 06:17 08:55 12:50 Temperature 97.6 F 96.7 F L 97.3 F L Pulse Rate 80 85 92 H Respiratory 18 18 20 Rate Blood Pressure 146/75 124/64 141/76 O2 Sat by Pulse 95 97 Oximetry (%) Laboratory Tests 09/01/19 09/01/19 09/01/19 13:00 13:05 13:05 WBC 6.6 RBC 4.36 Hgb 13.6 Hct 40.1 MCV 92.1 MCH 31.1 MCHC 33.8 RDW 13.1 Plt Count 204 MPV 8.1 Sodium 132 L Potassium 4.4 Chloride 98 Carbon Dioxide 24 Anion Gap 11 BUN 11.0 Creatinine 0.7 Est GFR (CKD-EPI)AfAm 99.62 Est GFR (CKD-EPI)NonAf 85.95 Random Glucose 92 Calcium 9.2 Total Bilirubin 0.4 AST 27 ALT 31 Alkaline Phosphatase 131 H Total Protein 7.2 Albumin 4.0 Syphilis Serology HIV Ag/Ab Combo Qual Negative 09/01/19 13:05 WBC RBC Hgb Hct MCV MCH MCHC RDW Plt Count MPV Sodium Potassium Chloride Carbon Dioxide Anion Gap BUN Creatinine Est GFR (CKD-EPI)AfAm Est GFR (CKD-EPI)NonAf Random Glucose Calcium Total Bilirubin AST ALT Alkaline Phosphatase Total Protein Albumin Syphilis Serology Non-reactive HIV Ag/Ab Combo Qual 09/02/19 13:57 lab noted covid pending Assessment: 09/02/19 13:58 alcohol withdrawal Plan: librium regiment
[2019-09-02] MEDS ORDERED: LOPERAMIDE HCL 2 MG CAPSULE PO ONE (14:00)
[2019-09-02] MEDS: THIAMINE HCL 100 MG TABLET (FP) PO SCH (22:29)
[2019-09-02] MEDS: ATORVASTATIN CA 20 MG TABLET (FP) PO SCH (22:29)
[2019-09-02] MEDS: MELATONIN 5 MG TABLETS PO SCH (22:30)
[2019-09-02] MEDS: PERPHENAZINE 4 MG TABLET PO SCH (22:33)
[2019-09-03] MEDS: hydrOXYzine PAMOATE 25 MG CAPSULE (FP) PO SCH (05:53)
[2019-09-03] MEDS: chlordiazePOXIDE HCL 25 MG CAPSULE PO SCH ×4 (05:53→22:24)
[2019-09-03] MEDS: LEVOTHYROXINE NA 25 MCG TABLET (FP) PO SCH (06:12)
[2019-09-03] MEDS ORDERED: hydrOXYzine PAMOATE 25 MG CAPSULE (FP) PO PRN (09:45)
[2019-09-03] MEDS ORDERED: LOPERAMIDE HCL 2 MG CAPSULE PO ONE (09:46)
--- NOTE | 2019-09-03 09:49 | PN ---
S CIWA - CIWA Score Nausea/Vomitin-Mild Nausea/No Vomiting Muscle Tremors: 3 Anxiety: 1-Mildly Anxious Agitation: 1-Slight > Activity Paroxysmal Sweats: No Perspiration Orientation: 0-Oriented Tacttile Disturbances: 0-None Auditory Disturbances: 0-None Visual Disturbances: 2-Mild Sensitivity Headache: 0-None Present CIWA-Ar Total Score: 8 BHS Progress Note (SOAP) Subjective: 74 years old female admitted on 09/01/19 for alcohol withdrawal sx management treating with librium detox regiment mild loose stool x 1 imodium 4 mg po x 1 Objective: 09/03/19 09:48 Vital Signs - 24 hr 09/02/19 09/02/19 09/02/19 12:50 16:46 20:48 Temperature 97.3 F L 97.1 F L 97.3 F L Pulse Rate 92 H 80 81 Respiratory 20 16 16 Rate Blood Pressure 141/76 136/76 139/79 O2 Sat by Pulse 97 96 Oximetry (%) 09/03/19 09/03/19 06:12 08:44 Temperature 97.3 F L 97.3 F L Pulse Rate 89 88 Respiratory 16 20 Rate Blood Pressure 113/69 121/59 L O2 Sat by Pulse 95 Oximetry (%) Laboratory Tests 09/01/19 09/01/19 09/01/19 09:45 13:00 13:05 WBC 6.6 RBC 4.36 Hgb 13.6 Hct 40.1 MCV 92.1 MCH 31.1 MCHC 33.8 RDW 13.1 Plt Count 204 MPV 8.1 Sodium Potassium Chloride Carbon Dioxide Anion Gap BUN Creatinine Est GFR (CKD-EPI)AfAm Est GFR (CKD-EPI)NonAf Random Glucose Calcium Total Bilirubin AST ALT Alkaline Phosphatase Total Protein Albumin Syphilis Serology COVID-19 ([place]) Not detected HIV Ag/Ab Combo Qual Negative 09/01/19 09/01/19 13:05 13:05 WBC RBC Hgb Hct MCV MCH MCHC RDW Plt Count MPV Sodium 132 L Potassium 4.4 Chloride 98 Carbon Dioxide 24 Anion Gap 11 BUN 11.0 Creatinine 0.7 Est GFR (CKD-EPI)AfAm 99.62 Est GFR (CKD-EPI)NonAf 85.95 Random Glucose 92 Calcium 9.2 Total Bilirubin 0.4 AST 27 ALT 31 Alkaline Phosphatase 131 H Total Protein 7.2 Albumin 4.0 Syphilis Serology Non-reactive COVID-19 ([place]) HIV Ag/Ab Combo Qual lab noted Assessment: 09/03/19 09:49 alcohol withdrawal loose stool Plan: librium regiment imodium 4 mg po x 1
[2019-09-03] MEDS: MULTIVIT-MINERALS ORAL LIQUID PO SCH (10:21)
[2019-09-03] MEDS: CYANOCOBALAMIN 1,000 MCG TABLET (FP) PO SCH (10:21)
[2019-09-03] MEDS: SERTRALINE HCL 50 MG TABLET (FP) PO SCH (10:21)
[2019-09-03] MEDS: THIAMINE HCL 100 MG TABLET (FP) PO SCH (22:24)
[2019-09-03] MEDS: PERPHENAZINE 4 MG TABLET PO SCH (22:24)
[2019-09-03] MEDS: MELATONIN 5 MG TABLETS PO SCH (22:24)
[2019-09-03] MEDS: cloNIDine HCL 0.1 MG TABLET PO PRN (22:24)
[2019-09-03] MEDS: ATORVASTATIN CA 20 MG TABLET (FP) PO SCH (22:24)
[2019-09-04] MEDS ORDERED: chlordiazePOXIDE HCL 10 MG CAPSULE PO PRN
[2019-09-04] MEDS: chlordiazePOXIDE HCL 10 MG CAPSULE PO SCH ×4 (05:29→22:06)
[2019-09-04] MEDS: LEVOTHYROXINE NA 25 MCG TABLET (FP) PO SCH (06:09)
[2019-09-04] MEDS: MULTIVIT-MINERALS ORAL LIQUID PO SCH (10:04)
[2019-09-04] MEDS: CYANOCOBALAMIN 1,000 MCG TABLET (FP) PO SCH (10:05)
[2019-09-04] MEDS: SERTRALINE HCL 50 MG TABLET (FP) PO SCH (10:05)
[2019-09-04] MEDS ORDERED: DIPHENOXYLATE 2.5/ATROPINE.025 1 COMBO TABLET PO ONE (10:35)
--- NOTE | 2019-09-04 10:37 | PN ---
S CIWA - CIWA Score Nausea/Vomitin-No Nausea/No Vomiting Muscle Tremors: 2 Anxiety: 2 Agitation: 0-Normal Activity Paroxysmal Sweats: No Perspiration Orientation: 0-Oriented Tacttile Disturbances: 1-Very Mild Itch/Numbness Auditory Disturbances: 0-None Visual Disturbances: 1-Very Mild Sensitivity Headache: 0-None Present CIWA-Ar Total Score: 6 BHS Progress Note (SOAP) Subjective: 74 years old female admitted on 09/01/19 for alcohol withdrawal sx management treating with librium detox regiment loose stool x 1 after breakfast lomotil 1 tab po x 1 discontinue citroma and mom Objective: 09/04/19 10:39 Vital Signs - 24 hr 09/03/19 09/03/19 09/03/19 12:40 16:30 20:43 Temperature 96.8 F L 97.3 F L 97.8 F Pulse Rate 93 H 78 86 Respiratory 18 18 18 Rate Blood Pressure 108/63 147/68 153/71 O2 Sat by Pulse 96 97 Oximetry (%) 09/04/19 09/04/19 06:24 09:04 Temperature 97.6 F 96.9 F L Pulse Rate 85 84 Respiratory 18 20 Rate Blood Pressure 116/72 116/64 O2 Sat by Pulse 95 Oximetry (%) Laboratory Tests 09/01/19 09/01/19 09/01/19 09:45 13:00 13:05 WBC 6.6 RBC 4.36 Hgb 13.6 Hct 40.1 MCV 92.1 MCH 31.1 MCHC 33.8 RDW 13.1 Plt Count 204 MPV 8.1 Sodium Potassium Chloride Carbon Dioxide Anion Gap BUN Creatinine Est GFR (CKD-EPI)AfAm Est GFR (CKD-EPI)NonAf Random Glucose Calcium Total Bilirubin AST ALT Alkaline Phosphatase Total Protein Albumin Syphilis Serology COVID-19 ([place]) Not detected HIV Ag/Ab Combo Qual Negative 09/01/19 09/01/19 13:05 13:05 WBC RBC Hgb Hct MCV MCH MCHC RDW Plt Count MPV Sodium 132 L Potassium 4.4 Chloride 98 Carbon Dioxide 24 Anion Gap 11 BUN 11.0 Creatinine 0.7 Est GFR (CKD-EPI)AfAm 99.62 Est GFR (CKD-EPI)NonAf 85.95 Random Glucose 92 Calcium 9.2 Total Bilirubin 0.4 AST 27 ALT 31 Alkaline Phosphatase 131 H Total Protein 7.2 Albumin 4.0 Syphilis Serology Non-reactive COVID-19 ([place]) HIV Ag/Ab Combo Qual lab noted Assessment: 09/04/19 10:40 alcohol withdrawal 09/04/19 10:40 vitamin b12 serum level pending Plan: librium regiment
[2019-09-04] MEDS: cloNIDine HCL 0.1 MG TABLET PO PRN (17:32)
[2019-09-04] MEDS: THIAMINE HCL 100 MG TABLET (FP) PO SCH (22:06)
[2019-09-04] MEDS: PERPHENAZINE 4 MG TABLET PO SCH (22:06)
[2019-09-04] MEDS: MELATONIN 5 MG TABLETS PO SCH (22:07)
[2019-09-04] MEDS: ATORVASTATIN CA 20 MG TABLET (FP) PO SCH (22:07)
[2019-09-05] MEDS: chlordiazePOXIDE HCL 10 MG CAPSULE PO SCH ×2 (05:55→17:40)
[2019-09-05] MEDS: LEVOTHYROXINE NA 25 MCG TABLET (FP) PO SCH (06:09)
[2019-09-05] MEDS: SERTRALINE HCL 50 MG TABLET (FP) PO SCH (10:14)
[2019-09-05] MEDS: MULTIVIT-MINERALS ORAL LIQUID PO SCH (10:14)
--- NOTE | 2019-09-05 11:59 | PN ---
S CIWA - CIWA Score Nausea/Vomitin-No Nausea/No Vomiting Muscle Tremors: 1-None Visible, but [place] Anxiety: 1-Mildly Anxious Agitation: 0-Normal Activity Paroxysmal Sweats: No Perspiration Orientation: 0-Oriented Tacttile Disturbances: 0-None Auditory Disturbances: 0-None Visual Disturbances: 0-None Headache: 0-None Present CIWA-Ar Total Score: 2 BHS Progress Note (SOAP) Subjective: No complaints, wants to go to Rehab Objective: 09/05/19 11:56 Ms. Iglesias is a 74 yo woman who presented to [facility] stating "I want to stop drinking". She last completed detox in February 2017. She relapsed immediately upon discharge. PMH: hypothyroidism, HLD, fatty liver, chronic diarrhea PSH: Breast biopsy, benign Psych: paranoid schizophrenia, Trazadone, Serteraline, perfenazine SOIC: lives wsith BR in [place], BF drinks as well Legal: none 09/05/19 11:56 09/05/19 11:57 PE Gnl: WDWN, in no distress MS: nl mentation Motor: moves well Gait: steady Laboratory Tests 09/01/19 09/01/19 09/01/19 09:45 13:00 13:05 WBC 6.6 RBC 4.36 Hgb 13.6 Hct 40.1 MCV 92.1 MCH 31.1 MCHC 33.8 RDW 13.1 Plt Count 204 MPV 8.1 Sodium Potassium Chloride Carbon Dioxide Anion Gap BUN Creatinine Est GFR (CKD-EPI)AfAm Est GFR (CKD-EPI)NonAf Random Glucose Calcium Total Bilirubin AST ALT Alkaline Phosphatase Total Protein Albumin Vitamin B12 Syphilis Serology COVID-19 ([place]) Not detected HIV Ag/Ab Combo Qual Negative 09/01/19 09/01/19 09/04/19 13:05 13:05 08:00 WBC RBC Hgb Hct MCV MCH MCHC RDW Plt Count MPV Sodium 132 L Potassium 4.4 Chloride 98 Carbon Dioxide 24 Anion Gap 11 BUN 11.0 Creatinine 0.7 Est GFR (CKD-EPI)AfAm 99.62 Est GFR (CKD-EPI)NonAf 85.95 Random Glucose 92 Calcium 9.2 Total Bilirubin 0.4 AST 27 ALT 31 Alkaline Phosphatase 131 H Total Protein 7.2 Albumin 4.0 Vitamin B12 418 Cancelled Syphilis Serology Non-reactive COVID-19 ([place]) HIV Ag/Ab Combo Qual Home Medication List Medication Instructions Recorded Confirmed Type Cyanocobalamin [Vitamin B12 -] 1,000 mcg PO DAILY 03/18/17 09/01/19 History Multivit-Min/Iron Fum/Folic AC 1 each PO DAILY 03/18/17 09/01/19 History [Fsimf-Mxodnbk-Ulcuzgkr Tablet] Perphenazine [Trilafon] 4 mg PO DAILY 03/18/17 09/01/19 History Sertraline HCl [Zoloft -] 100 mg PO DAILY 03/18/17 09/01/19 History traZODone HCL [Desyrel -] 50 mg PO HS 03/18/17 09/01/19 History Active Medications Generic Name Dose Route Start Last Admin Trade Name Freq PRN Reason Stop Dose Admin Acetaminophen 650 mg 09/01/19 12:23 Tylenol - PO Q6H PRN PAIN LEVEL 4 - 6 Acetaminophen 650 mg 09/01/19 12:23 Tylenol - PO Q6H PRN FEVER Al Hydroxide/Mg Hydroxide 30 ml 09/01/19 12:23 Mylanta Oral Suspension - PO Q6H PRN DYSPEPSIA Atorvastatin Calcium 20 mg 09/01/19 22:00 09/04/19 22:07 Lipitor - PO 20 mg HS CLARY Administration Bismuth Subsalicylate 524 mg 09/01/19 12:23 Pepto-Bismol - PO Q1H PRN DIARRHEA Chlordiazepoxide HCl 10 mg 09/05/19 05:00 09/05/19 05:55 Librium - PO 09/05/19 17:01 10 mg Q12H CLARY Administration Chlordiazepoxide HCl 10 mg 09/06/19 05:00 Librium - PO 09/06/19 05:01 ONCE@0500 ONE Clonidine 0.1 mg 09/02/19 13:52 09/04/19 17:32 Catapres - PO 0.1 mg Q6H PRN Administration HYPERTENSION Eucalyptus/Menthol/Phenol/Sorbitol 1 each 09/01/19 12:23 Cepastat Lozenge - MM 09/07/19 12:24 Q4H PRN SORE THROAT Ibuprofen 400 mg 09/01/19 12:23 Motrin - PO Q6H PRN PAIN LEVEL 1 - 3 Levothyroxine Sodium 50 mcg 09/02/19 07:00 09/05/19 06:09 Synthroid - PO 50 mcg ACBK CLARY Administration Melatonin 5 mg 09/01/19 22:00 09/04/19 22:07 Melatonin PO Not Given HS CLARY Methocarbamol 500 mg 09/01/19 12:23 Robaxin - PO 09/07/19 12:24 Q6H PRN MUSCLE SPASMS Multivitamins/Minerals 15 ml 09/02/19 10:00 09/05/19 10:14 Certavite-Antioxidant Liquid PO 15 ml DAILY CLARY Administration Ondansetron HCl 4 mg 09/01/19 12:23 Zofran Odt - SL 09/07/19 12:25 TID PRN Nausea/Vomiting Perphenazine 4 mg 09/01/19 22:00 09/04/19 22:06 Trilafon PO 4 mg HS CLARY Administration Sertraline HCl 100 mg 09/02/19 10:00 09/05/19 10:14 Zoloft - PO 100 mg DAILY CLARY Administration Thiamine HCl 100 mg 09/01/19 22:00 09/04/19 22:06 Vitamin B1 - PO 100 mg HS CLARY Administration Trazodone HCl 50 mg 09/01/19 14:27 09/02/19 22:29 Desyrel - PO 50 mg HS PRN Administration INSOMNIA Vital Signs Temperature 98 F 09/05/19 08:40 Pulse Rate 72 09/05/19 08:40 Respiratory Rate 18 09/05/19 08:40 Blood Pressure 125/91 09/05/19 08:40 O2 Sat by Pulse Oximetry (%) 94 L 09/05/19 05:44 Assessment: 09/05/19 11:58 1. Alcohol use disorder Plan: 1. Librium protocol, projected finish tomorrow 2. Would like to go to Rehab
[2019-09-05] MEDS: PERPHENAZINE 4 MG TABLET PO SCH (22:20)
[2019-09-05] MEDS: ATORVASTATIN CA 20 MG TABLET (FP) PO SCH (22:20)
[2019-09-05] MEDS: THIAMINE HCL 100 MG TABLET (FP) PO SCH (22:20)
[2019-09-05] MEDS: MELATONIN 5 MG TABLETS PO SCH (22:21)
[2019-09-06] MEDS ORDERED: chlordiazePOXIDE HCL 10 MG CAPSULE PO ONE (05:00)
[2019-09-06] MEDS: LEVOTHYROXINE NA 25 MCG TABLET (FP) PO SCH (06:27)
[2019-09-06 09:16] VITALS: BP 120/61; PULSE 91; TEMP 97.1
[2019-09-06] MEDS: MULTIVIT-MINERALS ORAL LIQUID PO SCH (11:00)
[2019-09-06] MEDS: SERTRALINE HCL 50 MG TABLET (FP) PO SCH (11:00)
--- NOTE | 2019-09-06 14:37 | DS ---
[facility] Detox Discharge Summary Admission Date: 09/01/19 Discharge Date: 09/06/19 - History Present History: Alcohol Dependence Additional Comments: Pt is medically cleared and discharge to [facility]. Pt completed the detox protocol. Pt is encouraged to follow with the rehab protocol which she verbalized understanding. Pt is alert oriented x3, in no acute respiratory, full ROM, and ambulatory. Pertinent Past History: h/o hypothyroidism, HLD, and alcohol use disorder. - Physical Exam Results Vital Signs: Vital Signs Temperature 97.1 F L 09/06/19 08:50 Pulse Rate 91 H 09/06/19 08:50 Respiratory Rate 18 09/06/19 08:50 Blood Pressure 120/61 09/06/19 08:50 O2 Sat by Pulse Oximetry (%) 95 09/06/19 06:33 Vital Signs 09/06/19 08:50 Temperature 97.1 F L Pulse Rate 91 H Respiratory 18 Rate Blood Pressure 120/61 Laboratory Last Values WBC 6.6 K/mm3 (4.0-10.0) 09/01/19 13:05 RBC 4.36 M/mm3 (3.60-5.2) 09/01/19 13:05 Hgb 13.6 GM/dL (10.7-15.3) 09/01/19 13:05 Hct 40.1 % (32.4-45.2) 09/01/19 13:05 MCV 92.1 fl (80-96) 09/01/19 13:05 MCH 31.1 pg (25.7-33.7) 09/01/19 13:05 MCHC 33.8 g/dl (32.0-36.0) 09/01/19 13:05 RDW 13.1 % (11.6-15.6) 09/01/19 13:05 Plt Count 204 K/MM3 (134-434) 09/01/19 13:05 MPV 8.1 fl (7.5-11.1) 09/01/19 13:05 Sodium 132 mmol/L (136-145) L 09/01/19 13:05 Potassium 4.4 mmol/L (3.5-5.1) 09/01/19 13:05 Chloride 98 mmol/L (98-107) 09/01/19 13:05 Carbon Dioxide 24 mmol/L (21-32) 09/01/19 13:05 Anion Gap 11 MMOL/L (8-16) 09/01/19 13:05 BUN 11.0 mg/dL (7-18) 09/01/19 13:05 Creatinine 0.7 mg/dL (0.55-1.3) 09/01/19 13:05 Est GFR (CKD-EPI)AfAm 99.62 09/01/19 13:05 Est GFR (CKD-EPI)NonAf 85.95 09/01/19 13:05 Random Glucose 92 mg/dL (74-106) 09/01/19 13:05 Calcium 9.2 mg/dL (8.5-10.1) 09/01/19 13:05 Total Bilirubin 0.4 mg/dL (0.2-1) 09/01/19 13:05 AST 27 U/L (15-37) 09/01/19 13:05 ALT 31 U/L (13-61) 09/01/19 13:05 Alkaline Phosphatase 131 U/L (45-117) H 09/01/19 13:05 Total Protein 7.2 g/dl (6.4-8.2) 09/01/19 13:05 Albumin 4.0 g/dl (3.4-5.0) 09/01/19 13:05 Vitamin B12 Cancelled 09/04/19 08:00 Syphilis Serology Non-reactive (NONREACTIVE) 09/01/19 13:05 COVID-19 ([place]) Not detected (Not Detected) 09/01/19 09:45 HIV Ag/Ab Combo Qual Negative (NEGATIVE) 09/01/19 13:00 Labs noted. Pertinent Admission Physical Exam Findings: withdrawal symptoms. - Treatment Hospital Course: Detox Protocol Followed, Detoxed Safely, Responded well, Discharged Condition Good, Rehab Referral Accepted Patient has Accepted a Rehab Referral to: [facility]. - Medication Discharge Medications: Ambulatory Orders Cyanocobalamin [Vitamin B12 -] 1,000 mcg PO DAILY 03/18/17 Multivit-Min/Iron Fum/Folic AC [Xdptp-Wfqqrfh-Grvxgqjj Tablet] 1 each PO DAILY 03/18/17 Perphenazine [Trilafon] 4 mg PO DAILY 03/18/17 Sertraline HCl [Zoloft -] 100 mg PO DAILY 03/18/17 traZODone HCL [Desyrel -] 50 mg PO HS 03/18/17 Atorvastatin Ca [Lipitor] 20 mg PO DAILY #14 tablet 03/22/17 Levothyroxine [Synthroid -] 50 mcg PO DAILY #14 tablet 03/22/17 Esomeprazole Magnesium 40 mg PO DAILY 14 Days #14 capsule. 09/05/19 - Diagnosis (1) Alcohol use disorder Status: Chronic (2) Alcohol dependence with withdrawal Status: Acute Qualifiers: Complication of substance-induced condition: uncomplicated Qualified Code(s): F10.230 - Alcohol dependence with withdrawal, uncomplicated (3) GERD (gastroesophageal reflux disease) Status: Chronic (4) Hyperlipidemia Status: Chronic (5) Hypothyroid Status: Chronic - AMA Did Patient Leave Against Medical Advice: No
== END 2019-09-06 12:09 | disposition other institution (70) | DRG 897 ==
LOC: YASAS 10:48 → Y3N 13:06
PROVIDERS: ADMIT Allergy & Immunology; ATTEND Allergy & Immunology
PROC: HZ2ZZZZ Detoxification Services for Substance Abuse Treatment (ICD-10-PCS; principal; 2019-09-01)
DX: F10.230 Alcohol dependence with withdrawal, uncomplicated (principal); F19.280 Other psychoactive substance dependence with psychoactive substance-induced anxiety disorder; F19.282 Other psychoactive substance dependence with psychoactive substance-induced sleep disorder; F20.0 Paranoid schizophrenia; E03.9 Hypothyroidism, unspecified; E78.5 Hyperlipidemia, unspecified; K21.9 Gastro-esophageal reflux disease without esophagitis; R19.5 Other fecal abnormalities; Z86.69 Personal history of other diseases of the nervous system and sense organs; Z85.828 Personal history of other malignant neoplasm of skin; Z88.0 Allergy status to penicillin
CPT/HCPCS: 36415; 80053; 82607; 85027; 86780; 87389; 93005; 93010; J0735; U0003

== ENCOUNTER 2019-09-06 12:16 | Inpatient (IN) | payer OTHER ==
[2019-09-06] MEDS ORDERED: MENTHOL/PHENOL 1 EACH UD MM PRN (14:41)
[2019-09-06] MEDS ORDERED: guaiFENesin 200 MG/10 ML 10 ML UNIT-DOSE CUPS PO PRN (14:41)
[2019-09-06] MEDS ORDERED: ACETAMINOPHEN 325 MG TABLET (FP) PO PRN (14:41)
[2019-09-06] MEDS ORDERED: MAGNESIUM HYDROX 2400MG/30ML ORAL SUSPENSION 30 ML CUP PO PRN (14:41)
[2019-09-06] MEDS ORDERED: MAG HYDROX/AL HYDROX/SIMETH 30 ML UNIT-DOSE CUP PO PRN (14:41)
[2019-09-06] MEDS ORDERED: IBUPROFEN 400 MG TABLET (FP) PO PRN (14:41)
[2019-09-06] MEDS ORDERED: NICOTINE POLACRILEX 2 MG GUM BUC PRN (14:41)
[2019-09-06] MEDS ORDERED: MAGNESIUM CITRATE 300 ML BOTTLE PO PRN (14:41)
[2019-09-06] MEDS ORDERED: P-EPHED 60MG/TRIPROLIDI 2.5MG TABLET PO PRN (14:41)
[2019-09-06] MEDS ORDERED: LOPERAMIDE HCL 2 MG CAPSULE PO PRN (14:41)
--- NOTE | 2019-09-06 14:41 | HP ---
[facility] Rehab Assess/Revision - Admission History Admitted to Rehab from: [facility] Date of Admission to Rehab: 09/06/19 - Vital signs Vital Signs: Vital Signs Period Temp Pulse Resp BP Sys/Paul Pulse Ox Last 24 Hr 98.1 F 73 19 146/80 - Findings Detox History & Physical reviewed: Yes Concur with findings: Yes Inpatient Rehab Admission - Rehab Decision to Admit Inpatient rehab admission?: Yes - Initial Determination Are CD services needed?: Yes Free of communicable disease: Yes Not in need of hospitalization: Yes - Rehab Admission Criteria Previous failed treatment: Yes Poor recovery environment: Yes Comorbidities: Yes Lacks judgement: Yes Patient is meeting Inpatient Rehab admission criteria:: Yes
--- NOTE | 2019-09-06 18:18 | PN ---
[facility] Progress Note Note: Psychiatry Attending's note : Prevention Specialist is informed of patient's transfer to [address] To pursue rehabilitation treatment for maintenance of sobriety. Ms Iglesias has been diagnosed with Paranoid Schizophrenia. Chart reviewed. Consult note from Dr Crespo (09/01/19) : Read and appreciated. Medications confirmed. Well tolerated. Resumed, for continuity of care : Trilafon 4 mg po hs. Zoloft 100 mg po daily. Informed consent validated.
[2019-09-06] MEDS: ATORVASTATIN CA 20 MG TABLET (FP) PO SCH (21:31)
[2019-09-06] MEDS: MELATONIN 5 MG TABLETS PO SCH (21:31)
[2019-09-06] MEDS: THIAMINE HCL 100 MG TABLET (FP) PO SCH (21:31)
[2019-09-07] MEDS: LEVOTHYROXINE NA 50 MCG TABLET (FP) PO SCH (06:55)
[2019-09-07] MEDS ORDERED: NICOTINE 7 MG/24 HOURS TOPICAL PATCH TD SCH (10:00)
[2019-09-07] MEDS: PANTOPRAZOLE 40 MG TABLET PO SCH (10:04)
[2019-09-07] MEDS: SERTRALINE HCL 50 MG TABLET (FP) PO SCH (10:04)
[2019-09-07] MEDS: PERPHENAZINE 4 MG TABLET PO SCH (10:05)
[2019-09-07] MEDS: CYANOCOBALAMIN 1,000 MCG TABLET (FP) PO SCH (10:05)
[2019-09-07] MEDS: PRENATAL VITAMINS W/ FOLIC ACID TABLET (FP) PO SCH (10:05)
[2019-09-07] MEDS: THIAMINE HCL 100 MG TABLET (FP) PO SCH (21:12)
[2019-09-07] MEDS: ATORVASTATIN CA 20 MG TABLET (FP) PO SCH (21:12)
[2019-09-07] MEDS: MELATONIN 5 MG TABLETS PO SCH (21:12)
[2019-09-08] MEDS: LEVOTHYROXINE NA 50 MCG TABLET (FP) PO SCH (06:13)
[2019-09-08] MEDS: SERTRALINE HCL 50 MG TABLET (FP) PO SCH (10:46)
[2019-09-08] MEDS: PANTOPRAZOLE 40 MG TABLET PO SCH (10:46)
[2019-09-08] MEDS: PRENATAL VITAMINS W/ FOLIC ACID TABLET (FP) PO SCH (10:46)
[2019-09-08] MEDS: CYANOCOBALAMIN 1,000 MCG TABLET (FP) PO SCH (10:46)
[2019-09-08] MEDS: PERPHENAZINE 4 MG TABLET PO SCH (10:51)
[2019-09-08] MEDS: hydrOXYzine PAMOATE 25 MG CAPSULE (FP) PO PRN (14:51)
[2019-09-08] MEDS: THIAMINE HCL 100 MG TABLET (FP) PO SCH (21:55)
[2019-09-08] MEDS: ATORVASTATIN CA 20 MG TABLET (FP) PO SCH (21:55)
[2019-09-08] MEDS: MELATONIN 5 MG TABLETS PO SCH (21:56)
[2019-09-09] MEDS: LEVOTHYROXINE NA 50 MCG TABLET (FP) PO SCH (06:57)
[2019-09-09] MEDS ORDERED: LEVOTHYROXINE NA 25 MCG TABLET (FP) PO SCH (07:00)
[2019-09-09] MEDS: PRENATAL VITAMINS W/ FOLIC ACID TABLET (FP) PO SCH (10:24)
[2019-09-09] MEDS: CYANOCOBALAMIN 1,000 MCG TABLET (FP) PO SCH (10:24)
[2019-09-09] MEDS: PERPHENAZINE 4 MG TABLET PO SCH (10:24)
[2019-09-09] MEDS: SERTRALINE HCL 50 MG TABLET (FP) PO SCH (10:24)
[2019-09-09] MEDS: PANTOPRAZOLE 40 MG TABLET PO SCH (10:24)
[2019-09-09] MEDS: ATORVASTATIN CA 20 MG TABLET (FP) PO SCH (21:23)
[2019-09-09] MEDS: THIAMINE HCL 100 MG TABLET (FP) PO SCH (21:23)
[2019-09-09] MEDS: MELATONIN 5 MG TABLETS PO SCH (21:24)
[2019-09-10] MEDS: LEVOTHYROXINE NA 50 MCG TABLET (FP) PO SCH (07:09)
[2019-09-10] MEDS: LEVOTHYROXINE NA 25 MCG TABLET (FP) PO SCH (08:26)
[2019-09-10] MEDS ORDERED: PT OWN MED DRAWER 7, Y5N ONE (08:46)
[2019-09-10] MEDS: PANTOPRAZOLE 40 MG TABLET PO SCH (10:30)
[2019-09-10] MEDS: PRENATAL VITAMINS W/ FOLIC ACID TABLET (FP) PO SCH (10:30)
[2019-09-10] MEDS: PERPHENAZINE 4 MG TABLET PO SCH (10:30)
[2019-09-10] MEDS: SERTRALINE HCL 50 MG TABLET (FP) PO SCH (10:30)
[2019-09-10] MEDS: CYANOCOBALAMIN 1,000 MCG TABLET (FP) PO SCH (10:31)
[2019-09-10] MEDS: MELATONIN 5 MG TABLETS PO SCH (21:34)
[2019-09-10] MEDS: THIAMINE HCL 100 MG TABLET (FP) PO SCH (21:34)
[2019-09-10] MEDS: hydrOXYzine PAMOATE 25 MG CAPSULE (FP) PO PRN (21:35)
[2019-09-10] MEDS: ATORVASTATIN CA 20 MG TABLET (FP) PO SCH (21:35)
[2019-09-11] MEDS: LEVOTHYROXINE NA 25 MCG TABLET (FP) PO SCH (06:32)
[2019-09-11] MEDS ORDERED: PT OWN MED DRAWER 7, Y5N ONE (08:30)
[2019-09-11] MEDS: PRENATAL VITAMINS W/ FOLIC ACID TABLET (FP) PO SCH (09:20)
[2019-09-11] MEDS: PERPHENAZINE 4 MG TABLET PO SCH (09:20)
[2019-09-11] MEDS: SERTRALINE HCL 50 MG TABLET (FP) PO SCH (09:20)
[2019-09-11] MEDS: CYANOCOBALAMIN 1,000 MCG TABLET (FP) PO SCH (09:20)
[2019-09-11] MEDS: PANTOPRAZOLE 40 MG TABLET PO SCH (09:20)
[2019-09-11] MEDS: THIAMINE HCL 100 MG TABLET (FP) PO SCH (21:18)
[2019-09-11] MEDS: ATORVASTATIN CA 20 MG TABLET (FP) PO SCH (21:18)
[2019-09-11] MEDS: MELATONIN 5 MG TABLETS PO SCH (21:19)
[2019-09-11] MEDS: hydrOXYzine PAMOATE 25 MG CAPSULE (FP) PO PRN (21:19)
[2019-09-12] MEDS: LEVOTHYROXINE NA 25 MCG TABLET (FP) PO SCH (06:16)
[2019-09-12] MEDS: PANTOPRAZOLE 40 MG TABLET PO SCH (10:11)
[2019-09-12] MEDS: CYANOCOBALAMIN 1,000 MCG TABLET (FP) PO SCH (10:11)
[2019-09-12] MEDS: SERTRALINE HCL 50 MG TABLET (FP) PO SCH (10:11)
[2019-09-12] MEDS: PRENATAL VITAMINS W/ FOLIC ACID TABLET (FP) PO SCH (10:11)
[2019-09-12] MEDS: PERPHENAZINE 4 MG TABLET PO SCH (10:12)
[2019-09-12] MEDS ORDERED: PT OWN MED DRAWER 7, Y5N ONE (10:12)
[2019-09-12] MEDS: ATORVASTATIN CA 20 MG TABLET (FP) PO SCH (21:23)
[2019-09-12] MEDS: MELATONIN 5 MG TABLETS PO SCH (21:23)
[2019-09-12] MEDS: hydrOXYzine PAMOATE 25 MG CAPSULE (FP) PO PRN (21:23)
[2019-09-12] MEDS: THIAMINE HCL 100 MG TABLET (FP) PO SCH (21:23)
[2019-09-13] MEDS: LEVOTHYROXINE NA 25 MCG TABLET (FP) PO SCH (06:00)
[2019-09-13] MEDS ORDERED: PT OWN MED DRAWER 7, Y5N ONE (08:56)
[2019-09-13] MEDS: hydrOXYzine PAMOATE 25 MG CAPSULE (FP) PO PRN ×2 (10:21→21:05)
[2019-09-13] MEDS: PERPHENAZINE 4 MG TABLET PO SCH (10:21)
[2019-09-13] MEDS: SERTRALINE HCL 50 MG TABLET (FP) PO SCH (10:21)
[2019-09-13] MEDS: PANTOPRAZOLE 40 MG TABLET PO SCH (10:22)
[2019-09-13] MEDS: CYANOCOBALAMIN 1,000 MCG TABLET (FP) PO SCH (10:22)
[2019-09-13] MEDS: PRENATAL VITAMINS W/ FOLIC ACID TABLET (FP) PO SCH (10:23)
[2019-09-13] MEDS: MELATONIN 5 MG TABLETS PO SCH (21:05)
[2019-09-13] MEDS: THIAMINE HCL 100 MG TABLET (FP) PO SCH (21:05)
[2019-09-13] MEDS: ATORVASTATIN CA 20 MG TABLET (FP) PO SCH (21:05)
[2019-09-14] MEDS: LEVOTHYROXINE NA 25 MCG TABLET (FP) PO SCH (06:23)
[2019-09-14] MEDS ORDERED: PT OWN MED DRAWER 7, Y5N ONE (08:40)
[2019-09-14] MEDS: SERTRALINE HCL 50 MG TABLET (FP) PO SCH (10:15)
[2019-09-14] MEDS: PRENATAL VITAMINS W/ FOLIC ACID TABLET (FP) PO SCH (10:15)
[2019-09-14] MEDS: PANTOPRAZOLE 40 MG TABLET PO SCH (10:16)
[2019-09-14] MEDS: hydrOXYzine PAMOATE 25 MG CAPSULE (FP) PO PRN ×2 (10:16→21:49)
[2019-09-14] MEDS: PERPHENAZINE 4 MG TABLET PO SCH (10:16)
[2019-09-14] MEDS: CYANOCOBALAMIN 1,000 MCG TABLET (FP) PO SCH (10:16)
[2019-09-14] MEDS: MELATONIN 5 MG TABLETS PO SCH (21:49)
[2019-09-14] MEDS: ATORVASTATIN CA 20 MG TABLET (FP) PO SCH (21:49)
[2019-09-14] MEDS: THIAMINE HCL 100 MG TABLET (FP) PO SCH (21:49)
[2019-09-15] MEDS: LEVOTHYROXINE NA 25 MCG TABLET (FP) PO SCH (06:53)
[2019-09-15] MEDS ORDERED: PT OWN MED DRAWER 7, Y5N ONE (08:46)
[2019-09-15] MEDS: CYANOCOBALAMIN 1,000 MCG TABLET (FP) PO SCH (10:03)
[2019-09-15] MEDS: PERPHENAZINE 4 MG TABLET PO SCH (10:03)
[2019-09-15] MEDS: PANTOPRAZOLE 40 MG TABLET PO SCH (10:03)
[2019-09-15] MEDS: PRENATAL VITAMINS W/ FOLIC ACID TABLET (FP) PO SCH (10:05)
[2019-09-15] MEDS: SERTRALINE HCL 50 MG TABLET (FP) PO SCH (10:55)
[2019-09-15] MEDS: ATORVASTATIN CA 20 MG TABLET (FP) PO SCH (21:11)
[2019-09-15] MEDS: MELATONIN 5 MG TABLETS PO SCH (21:11)
[2019-09-15] MEDS: THIAMINE HCL 100 MG TABLET (FP) PO SCH (21:11)
[2019-09-16] MEDS: LEVOTHYROXINE NA 25 MCG TABLET (FP) PO SCH (06:08)
[2019-09-16] MEDS: PERPHENAZINE 4 MG TABLET PO SCH (10:48)
[2019-09-16] MEDS: PANTOPRAZOLE 40 MG TABLET PO SCH (10:48)
[2019-09-16] MEDS: PRENATAL VITAMINS W/ FOLIC ACID TABLET (FP) PO SCH (10:48)
[2019-09-16] MEDS: CYANOCOBALAMIN 1,000 MCG TABLET (FP) PO SCH (10:49)
[2019-09-16] MEDS: SERTRALINE HCL 50 MG TABLET (FP) PO SCH (10:49)
[2019-09-16] MEDS: hydrOXYzine PAMOATE 25 MG CAPSULE (FP) PO PRN (10:50)
--- NOTE | 2019-09-16 12:56 | CONSULT ---
[facility] Psychiatric Consult - Data Date of interview: 09/16/19 Admission source: [facility] Identifying data: Patient is a 74 year old single female, without children, domiciled and is supported by SSI benefits and a pension. This is one of multiple admissions for patient. Patient admitted to for alcohol dependence. Substance Abuse History: Substance Use History. Alcohol. Substance amount: 10-17 beers. Frequency of use: Daily. Substance route: Oral. Date of Last Use: 08/31/19. Began drinking age 24y. No hx of seizures. Has had syncopal spell 5 monts ago. Admits to an eye proposal writer. Meets criteria for admission due to high risk of relapse, comorbid psychiatric disorder. History Source: Patient. Limitations to Obtaining History: No Limitations Medical History: Significant for dyslipidemia, hypothyroidism, GERD, history of alcohol related seizure, biopsy of both breasts and removal of carcinoma of forehead in 2016. Psychiatric History: Ms. Iglesias's first psychiatric contact was at 20 years of age at the family [facility] clinic in [place], [place]. She was diagnosed with depression and anxiety and was treated with psychotherapy. At 36 years of age she was diagnosed with paranoid schizophrenia at [facility]. Reports multiple psychiatric hospitalizations at only 2 facilities, [facility] in 1981, 1982, 1983 and [facility] in 1998 and 2009. Patient was most recently receiving outpatient psychiatric care by Dr. Nicki Naik and was prescribed zoloft 100mg daily + Trilafon 4mg HS + Trazodone 50mg HS. Ms. Iglesias continues to receive her psychotropic regiman by her primary care physican. At present patient reports stable mood, denies auditory/ visual hallucination, suicidal/homicidal ideation but is experiencing difficulty sleeping. Physical/Sexual Abuse/Trauma History: denies. Mental Status Exam - Mental Status Exam Alert and Oriented to: Time, Place, Person Cognitive Function: Good Patient Appearance: Well Groomed Mood: Hopeful Affect: Mood Congruent Patient Behavior: Appropriate, Cooperative Speech Pattern: Clear, Appropriate Voice Loudness: Normal Thought Process: Goal Oriented Thought Disorder: Not Present Hallucinations: Denies Suicidal Ideation: Denies Homicidal Ideation: Denies Insight/Judgement: Poor Sleep: Poorly Appetite: Fair Muscle strength/Tone: Normal Gait/Station: Normal Psychiatric Findings - Problem List ([place] 1, 2,3) (1) Alcohol use disorder Current Visit: Yes Status: Acute (2) Alcohol-induced sleep disorder Current Visit: Yes Status: Acute (3) Paranoid schizophrenia Current Visit: Yes Status: Chronic - Initial Treatment Plan Initial Treatment Plan: Psychoeducation provided. Detoxification in progress. 1) Patient is currently ordered Zoloft 100mg daily + Trilafon 4mg HS. 2) Will resume Trazodone 50mg HS PRN (ordered PRN as per patient's request). Benefits and side effects discussed. Verbal consent given.
[2019-09-16] MEDS: MELATONIN 5 MG TABLETS PO SCH (21:24)
[2019-09-16] MEDS: ATORVASTATIN CA 20 MG TABLET (FP) PO SCH (21:24)
[2019-09-16] MEDS: THIAMINE HCL 100 MG TABLET (FP) PO SCH (21:24)
[2019-09-16] MEDS: traZODone HCL 50 MG TABLET (FP) PO PRN (21:25)
[2019-09-17] MEDS: LEVOTHYROXINE NA 25 MCG TABLET (FP) PO SCH (06:30)
[2019-09-17] MEDS: CYANOCOBALAMIN 1,000 MCG TABLET (FP) PO SCH (10:01)
[2019-09-17] MEDS: hydrOXYzine PAMOATE 25 MG CAPSULE (FP) PO PRN (10:01)
[2019-09-17] MEDS: PANTOPRAZOLE 40 MG TABLET PO SCH (10:01)
[2019-09-17] MEDS: SERTRALINE HCL 50 MG TABLET (FP) PO SCH (10:01)
[2019-09-17] MEDS: PRENATAL VITAMINS W/ FOLIC ACID TABLET (FP) PO SCH (10:01)
[2019-09-17] MEDS ORDERED: PT OWN MED DRAWER 7, Y5N ONE (10:02)
[2019-09-17] MEDS: PERPHENAZINE 4 MG TABLET PO SCH (10:03)
--- NOTE | 2019-09-17 20:55 | PN ---
[facility] Progress Note Note: Patient was seen and evaluated in bed secondary to a fall. She reports that she was in the lunch room to get a cup of coffee. She was trying to sit on a chair and fell on her buttocks. She reports lower back pain and denies loss of consciousness, dizziness, nausea, vomiting and head trauma. She is alert and oriented x 3, ambulates with minimal difficulties and able to move all extremities. Blood pressure elevated, denies history of hypertension and patient appears very anxious. Fall was not witnessed. Fall protocol #1 initiated. Patient is to be transferred to [facility] ER for evaluation. Endorsed to Dr. Dodge. Vital Signs Temperature 98.8 F 09/17/19 21:00 Pulse Rate 86 09/17/19 21:00 Respiratory Rate 18 09/17/19 21:00 Blood Pressure 197/109 H 09/17/19 21:00 O2 Sat by Pulse Oximetry (%) 95 09/17/19 21:00 Action: Transfer patient to ER for evaluation Ibuprofen 400mg tablet oral Q6H prn
[2019-09-17] MEDS: ATORVASTATIN CA 20 MG TABLET (FP) PO SCH (21:22)
[2019-09-17] MEDS: THIAMINE HCL 100 MG TABLET (FP) PO SCH (21:23)
[2019-09-17] MEDS: MELATONIN 5 MG TABLETS PO SCH (21:23)
[2019-09-18] MEDS: LEVOTHYROXINE NA 25 MCG TABLET (FP) PO SCH (06:13)
[2019-09-18] MEDS ORDERED: PT OWN MED DRAWER 7, Y5N ONE (08:52)
[2019-09-18] MEDS: CYANOCOBALAMIN 1,000 MCG TABLET (FP) PO SCH (10:50)
[2019-09-18] MEDS: hydrOXYzine PAMOATE 25 MG CAPSULE (FP) PO PRN ×2 (10:50→16:59)
[2019-09-18] MEDS: PRENATAL VITAMINS W/ FOLIC ACID TABLET (FP) PO SCH (10:50)
[2019-09-18] MEDS: SERTRALINE HCL 50 MG TABLET (FP) PO SCH (10:50)
[2019-09-18] MEDS: PANTOPRAZOLE 40 MG TABLET PO SCH (10:51)
[2019-09-18] MEDS: PERPHENAZINE 4 MG TABLET PO SCH (10:51)
[2019-09-18] MEDS: MELATONIN 5 MG TABLETS PO SCH (21:58)
[2019-09-18] MEDS: ATORVASTATIN CA 20 MG TABLET (FP) PO SCH (21:58)
[2019-09-18] MEDS: THIAMINE HCL 100 MG TABLET (FP) PO SCH (21:58)
[2019-09-18] MEDS: traZODone HCL 50 MG TABLET (FP) PO PRN (22:02)
[2019-09-19] MEDS: LEVOTHYROXINE NA 25 MCG TABLET (FP) PO SCH (06:12)
--- NOTE | 2019-09-19 08:26 | PN ---
[facility] Progress Note Note: Requested to see patient because of insomnia. Told contract technical writer that she is currently on Trazadone 50 mg/hs and it is working fine
[2019-09-19] MEDS ORDERED: PT OWN MED DRAWER 7, Y5N ONE (08:43)
[2019-09-19] MEDS: CYANOCOBALAMIN 1,000 MCG TABLET (FP) PO SCH (10:40)
[2019-09-19] MEDS: SERTRALINE HCL 50 MG TABLET (FP) PO SCH (10:40)
[2019-09-19] MEDS: hydrOXYzine PAMOATE 25 MG CAPSULE (FP) PO PRN (10:40)
[2019-09-19] MEDS: PRENATAL VITAMINS W/ FOLIC ACID TABLET (FP) PO SCH (10:40)
[2019-09-19] MEDS: PERPHENAZINE 4 MG TABLET PO SCH (10:41)
[2019-09-19] MEDS: PANTOPRAZOLE 40 MG TABLET PO SCH (10:41)
[2019-09-19] MEDS: THIAMINE HCL 100 MG TABLET (FP) PO SCH (21:37)
[2019-09-19] MEDS: ATORVASTATIN CA 20 MG TABLET (FP) PO SCH (21:37)
[2019-09-19] MEDS: traZODone HCL 50 MG TABLET (FP) PO PRN (21:38)
[2019-09-19] MEDS: MELATONIN 5 MG TABLETS PO SCH (21:38)
[2019-09-20] MEDS: LEVOTHYROXINE NA 25 MCG TABLET (FP) PO SCH (06:35)
[2019-09-20] MEDS ORDERED: PT OWN MED DRAWER 7, Y5N ONE (08:40)
[2019-09-20] MEDS: MULTIVIT-MINERALS ORAL LIQUID PO SCH (09:52)
[2019-09-20] MEDS: SERTRALINE HCL 50 MG TABLET (FP) PO SCH (09:53)
[2019-09-20] MEDS: PERPHENAZINE 4 MG TABLET PO SCH (09:53)
[2019-09-20] MEDS: CYANOCOBALAMIN 1,000 MCG TABLET (FP) PO SCH (09:53)
[2019-09-20] MEDS: PANTOPRAZOLE 40 MG TABLET PO SCH (09:53)
[2019-09-20] MEDS: THIAMINE HCL 100 MG TABLET (FP) PO SCH (21:22)
[2019-09-20] MEDS: ATORVASTATIN CA 20 MG TABLET (FP) PO SCH (21:22)
[2019-09-20] MEDS: MELATONIN 5 MG TABLETS PO SCH (21:22)
[2019-09-20] MEDS: traZODone HCL 50 MG TABLET (FP) PO PRN (21:23)
[2019-09-21] MEDS: LEVOTHYROXINE NA 25 MCG TABLET (FP) PO SCH (06:26)
[2019-09-21] MEDS ORDERED: PT OWN MED DRAWER 7, Y5N ONE (08:43)
[2019-09-21] MEDS: PERPHENAZINE 4 MG TABLET PO SCH (09:38)
[2019-09-21] MEDS: MULTIVIT-MINERALS ORAL LIQUID PO SCH (09:38)
[2019-09-21] MEDS: PANTOPRAZOLE 40 MG TABLET PO SCH (09:38)
[2019-09-21] MEDS: CYANOCOBALAMIN 1,000 MCG TABLET (FP) PO SCH (09:38)
[2019-09-21] MEDS: SERTRALINE HCL 50 MG TABLET (FP) PO SCH (09:38)
[2019-09-21] MEDS: THIAMINE HCL 100 MG TABLET (FP) PO SCH (21:36)
[2019-09-21] MEDS: ATORVASTATIN CA 20 MG TABLET (FP) PO SCH (21:36)
[2019-09-21] MEDS: MELATONIN 5 MG TABLETS PO SCH (21:36)
[2019-09-21] MEDS: traZODone HCL 50 MG TABLET (FP) PO PRN (21:36)
[2019-09-22] MEDS: LEVOTHYROXINE NA 25 MCG TABLET (FP) PO SCH (06:20)
[2019-09-22] MEDS: SERTRALINE HCL 50 MG TABLET (FP) PO SCH (11:06)
[2019-09-22] MEDS: PERPHENAZINE 4 MG TABLET PO SCH (11:07)
[2019-09-22] MEDS: CYANOCOBALAMIN 1,000 MCG TABLET (FP) PO SCH (11:07)
[2019-09-22] MEDS: PANTOPRAZOLE 40 MG TABLET PO SCH (11:07)
[2019-09-22] MEDS: MULTIVIT-MINERALS ORAL LIQUID PO SCH (11:09)
[2019-09-22] MEDS: ATORVASTATIN CA 20 MG TABLET (FP) PO SCH (21:56)
[2019-09-22] MEDS: THIAMINE HCL 100 MG TABLET (FP) PO SCH (21:56)
[2019-09-22] MEDS: traZODone HCL 50 MG TABLET (FP) PO PRN (21:57)
[2019-09-22] MEDS: MELATONIN 5 MG TABLETS PO SCH (21:58)
[2019-09-23] MEDS: LEVOTHYROXINE NA 25 MCG TABLET (FP) PO SCH (06:39)
[2019-09-23] MEDS: MULTIVIT-MINERALS ORAL LIQUID PO SCH (10:30)
[2019-09-23] MEDS: CYANOCOBALAMIN 1,000 MCG TABLET (FP) PO SCH (10:31)
[2019-09-23] MEDS: PERPHENAZINE 4 MG TABLET PO SCH (10:31)
[2019-09-23] MEDS: SERTRALINE HCL 50 MG TABLET (FP) PO SCH (10:31)
[2019-09-23] MEDS: PANTOPRAZOLE 40 MG TABLET PO SCH (10:31)
[2019-09-23] MEDS: hydrOXYzine PAMOATE 25 MG CAPSULE (FP) PO PRN (10:31)
[2019-09-23] MEDS: MELATONIN 5 MG TABLETS PO SCH (21:05)
[2019-09-23] MEDS: THIAMINE HCL 100 MG TABLET (FP) PO SCH (21:05)
[2019-09-23] MEDS: traZODone HCL 50 MG TABLET (FP) PO PRN (21:06)
[2019-09-23] MEDS: ATORVASTATIN CA 20 MG TABLET (FP) PO SCH (21:06)
[2019-09-24] MEDS: LEVOTHYROXINE NA 25 MCG TABLET (FP) PO SCH (06:24)
[2019-09-24] MEDS ORDERED: PT OWN MED DRAWER 7, Y5N ONE (08:46)
[2019-09-24] MEDS: MULTIVIT-MINERALS ORAL LIQUID PO SCH (09:53)
[2019-09-24] MEDS: SERTRALINE HCL 50 MG TABLET (FP) PO SCH (09:54)
[2019-09-24] MEDS: hydrOXYzine PAMOATE 25 MG CAPSULE (FP) PO PRN (09:54)
[2019-09-24] MEDS: PANTOPRAZOLE 40 MG TABLET PO SCH (09:54)
[2019-09-24] MEDS: PERPHENAZINE 4 MG TABLET PO SCH (09:54)
[2019-09-24] MEDS: CYANOCOBALAMIN 1,000 MCG TABLET (FP) PO SCH (09:54)
[2019-09-24] MEDS: MELATONIN 5 MG TABLETS PO SCH (21:28)
[2019-09-24] MEDS: ATORVASTATIN CA 20 MG TABLET (FP) PO SCH (21:28)
[2019-09-24] MEDS: THIAMINE HCL 100 MG TABLET (FP) PO SCH (21:28)
[2019-09-24] MEDS: traZODone HCL 50 MG TABLET (FP) PO PRN (21:28)
[2019-09-25] MEDS: LEVOTHYROXINE NA 25 MCG TABLET (FP) PO SCH (06:30)
[2019-09-25] MEDS ORDERED: PT OWN MED DRAWER 7, Y5N ONE (08:52)
[2019-09-25] MEDS: MULTIVIT-MINERALS ORAL LIQUID PO SCH (09:17)
[2019-09-25] MEDS: PANTOPRAZOLE 40 MG TABLET PO SCH (09:17)
[2019-09-25] MEDS: CYANOCOBALAMIN 1,000 MCG TABLET (FP) PO SCH (09:18)
[2019-09-25] MEDS: PERPHENAZINE 4 MG TABLET PO SCH (09:18)
[2019-09-25] MEDS: SERTRALINE HCL 50 MG TABLET (FP) PO SCH (09:19)
[2019-09-25] MEDS: THIAMINE HCL 100 MG TABLET (FP) PO SCH (21:01)
[2019-09-25] MEDS: hydrOXYzine PAMOATE 25 MG CAPSULE (FP) PO PRN (21:01)
[2019-09-25] MEDS: ATORVASTATIN CA 20 MG TABLET (FP) PO SCH (21:01)
[2019-09-25] MEDS: traZODone HCL 50 MG TABLET (FP) PO PRN (21:01)
[2019-09-25] MEDS: MELATONIN 5 MG TABLETS PO SCH (21:01)
[2019-09-26] MEDS: LEVOTHYROXINE NA 25 MCG TABLET (FP) PO SCH (06:09)
[2019-09-26] MEDS ORDERED: PT OWN MED DRAWER 7, Y5N ONE (08:45)
[2019-09-26] MEDS: MULTIVIT-MINERALS ORAL LIQUID PO SCH (09:57)
[2019-09-26] MEDS: SERTRALINE HCL 50 MG TABLET (FP) PO SCH (09:57)
[2019-09-26] MEDS: PERPHENAZINE 4 MG TABLET PO SCH (09:58)
[2019-09-26] MEDS: CYANOCOBALAMIN 1,000 MCG TABLET (FP) PO SCH (09:58)
[2019-09-26] MEDS: PANTOPRAZOLE 40 MG TABLET PO SCH (09:58)
[2019-09-26] MEDS: hydrOXYzine PAMOATE 25 MG CAPSULE (FP) PO PRN ×2 (09:58→21:24)
[2019-09-26] MEDS: MELATONIN 5 MG TABLETS PO SCH (21:23)
[2019-09-26] MEDS: traZODone HCL 50 MG TABLET (FP) PO PRN (21:23)
[2019-09-26] MEDS: THIAMINE HCL 100 MG TABLET (FP) PO SCH (21:23)
[2019-09-26] MEDS: ATORVASTATIN CA 20 MG TABLET (FP) PO SCH (21:24)
[2019-09-27] MEDS: LEVOTHYROXINE NA 25 MCG TABLET (FP) PO SCH (06:21)
[2019-09-27] MEDS: hydrOXYzine PAMOATE 25 MG CAPSULE (FP) PO PRN (09:45)
[2019-09-27] MEDS: CYANOCOBALAMIN 1,000 MCG TABLET (FP) PO SCH (09:46)
[2019-09-27] MEDS: MULTIVIT-MINERALS ORAL LIQUID PO SCH (09:46)
[2019-09-27] MEDS: PANTOPRAZOLE 40 MG TABLET PO SCH (09:46)
[2019-09-27] MEDS: SERTRALINE HCL 50 MG TABLET (FP) PO SCH (09:46)
[2019-09-27] MEDS: PERPHENAZINE 4 MG TABLET PO SCH (09:46)
[2019-09-27] MEDS: ATORVASTATIN CA 20 MG TABLET (FP) PO SCH (21:03)
[2019-09-27] MEDS: MELATONIN 5 MG TABLETS PO SCH (21:03)
[2019-09-27] MEDS: traZODone HCL 50 MG TABLET (FP) PO PRN (21:03)
[2019-09-27] MEDS: THIAMINE HCL 100 MG TABLET (FP) PO SCH (21:04)
[2019-09-28] MEDS: hydrOXYzine PAMOATE 25 MG CAPSULE (FP) PO PRN ×3 (00:12→16:40)
[2019-09-28] MEDS: LEVOTHYROXINE NA 25 MCG TABLET (FP) PO SCH (06:00)
[2019-09-28] MEDS: CYANOCOBALAMIN 1,000 MCG TABLET (FP) PO SCH (10:02)
[2019-09-28] MEDS: MULTIVIT-MINERALS ORAL LIQUID PO SCH (10:02)
[2019-09-28] MEDS: PERPHENAZINE 4 MG TABLET PO SCH (10:02)
[2019-09-28] MEDS: PANTOPRAZOLE 40 MG TABLET PO SCH (10:02)
[2019-09-28] MEDS: SERTRALINE HCL 50 MG TABLET (FP) PO SCH (10:03)
[2019-09-28] MEDS: traZODone HCL 50 MG TABLET (FP) PO PRN (21:25)
[2019-09-28] MEDS: THIAMINE HCL 100 MG TABLET (FP) PO SCH (21:25)
[2019-09-28] MEDS: ATORVASTATIN CA 20 MG TABLET (FP) PO SCH (21:25)
[2019-09-28] MEDS: MELATONIN 5 MG TABLETS PO SCH (21:26)
[2019-09-29] MEDS: LEVOTHYROXINE NA 25 MCG TABLET (FP) PO SCH (06:10)
[2019-09-29] MEDS ORDERED: PT OWN MED DRAWER 7, Y5N ONE (08:49)
[2019-09-29] MEDS: PERPHENAZINE 4 MG TABLET PO SCH (10:00)
[2019-09-29] MEDS: SERTRALINE HCL 50 MG TABLET (FP) PO SCH (10:00)
[2019-09-29] MEDS: MULTIVIT-MINERALS ORAL LIQUID PO SCH (10:00)
[2019-09-29] MEDS: PANTOPRAZOLE 40 MG TABLET PO SCH (10:00)
[2019-09-29] MEDS: CYANOCOBALAMIN 1,000 MCG TABLET (FP) PO SCH (10:00)
[2019-09-29] MEDS: hydrOXYzine PAMOATE 25 MG CAPSULE (FP) PO PRN ×2 (14:14→21:08)
[2019-09-29] MEDS: THIAMINE HCL 100 MG TABLET (FP) PO SCH (21:08)
[2019-09-29] MEDS: MELATONIN 5 MG TABLETS PO SCH (21:08)
[2019-09-29] MEDS: ATORVASTATIN CA 20 MG TABLET (FP) PO SCH (21:08)
[2019-09-29] MEDS: traZODone HCL 50 MG TABLET (FP) PO PRN (21:08)
[2019-09-30] MEDS: LEVOTHYROXINE NA 25 MCG TABLET (FP) PO SCH (06:11)
[2019-09-30] MEDS: PERPHENAZINE 4 MG TABLET PO SCH (09:48)
[2019-09-30] MEDS: SERTRALINE HCL 50 MG TABLET (FP) PO SCH (09:48)
[2019-09-30] MEDS: MULTIVIT-MINERALS ORAL LIQUID PO SCH (09:48)
[2019-09-30] MEDS: CYANOCOBALAMIN 1,000 MCG TABLET (FP) PO SCH (09:49)
[2019-09-30] MEDS: PANTOPRAZOLE 40 MG TABLET PO SCH (09:49)
[2019-09-30] MEDS: hydrOXYzine PAMOATE 25 MG CAPSULE (FP) PO PRN ×2 (09:50→21:30)
[2019-09-30] MEDS: traZODone HCL 50 MG TABLET (FP) PO PRN (21:29)
[2019-09-30] MEDS: MELATONIN 5 MG TABLETS PO SCH (21:29)
[2019-09-30] MEDS: THIAMINE HCL 100 MG TABLET (FP) PO SCH (21:29)
[2019-09-30] MEDS: ATORVASTATIN CA 20 MG TABLET (FP) PO SCH (21:30)
[2019-10-01] MEDS: LEVOTHYROXINE NA 25 MCG TABLET (FP) PO SCH (06:14)
[2019-10-01] MEDS ORDERED: PT OWN MED DRAWER 7, Y5N ONE (08:58)
[2019-10-01] MEDS: hydrOXYzine PAMOATE 25 MG CAPSULE (FP) PO PRN ×3 (10:06→21:17)
[2019-10-01] MEDS: SERTRALINE HCL 50 MG TABLET (FP) PO SCH (10:06)
[2019-10-01] MEDS: PERPHENAZINE 4 MG TABLET PO SCH (10:06)
[2019-10-01] MEDS: MULTIVIT-MINERALS ORAL LIQUID PO SCH (10:06)
[2019-10-01] MEDS: PANTOPRAZOLE 40 MG TABLET PO SCH (10:06)
[2019-10-01] MEDS: CYANOCOBALAMIN 1,000 MCG TABLET (FP) PO SCH (10:06)
[2019-10-01] MEDS: ATORVASTATIN CA 20 MG TABLET (FP) PO SCH (21:17)
[2019-10-01] MEDS: MELATONIN 5 MG TABLETS PO SCH (21:17)
[2019-10-01] MEDS: THIAMINE HCL 100 MG TABLET (FP) PO SCH (21:17)
[2019-10-01] MEDS: traZODone HCL 50 MG TABLET (FP) PO PRN (21:17)
[2019-10-02] MEDS: LEVOTHYROXINE NA 25 MCG TABLET (FP) PO SCH (06:20)
[2019-10-02 07:19] VITALS: BP 147/72
[2019-10-02] MEDS ORDERED: PT OWN MED DRAWER 7, Y5N ONE (08:56)
[2019-10-02] MEDS: CYANOCOBALAMIN 1,000 MCG TABLET (FP) PO SCH (09:43)
[2019-10-02] MEDS: PANTOPRAZOLE 40 MG TABLET PO SCH (09:43)
[2019-10-02] MEDS: SERTRALINE HCL 50 MG TABLET (FP) PO SCH (09:43)
[2019-10-02] MEDS: PERPHENAZINE 4 MG TABLET PO SCH (09:43)
[2019-10-02] MEDS: MULTIVIT-MINERALS ORAL LIQUID PO SCH (09:43)
[2019-10-02] MEDS: hydrOXYzine PAMOATE 25 MG CAPSULE (FP) PO PRN ×2 (09:45→21:33)
[2019-10-02] MEDS: THIAMINE HCL 100 MG TABLET (FP) PO SCH (21:32)
[2019-10-02] MEDS: MELATONIN 5 MG TABLETS PO SCH (21:32)
[2019-10-02] MEDS: ATORVASTATIN CA 20 MG TABLET (FP) PO SCH (21:32)
[2019-10-02] MEDS: traZODone HCL 50 MG TABLET (FP) PO PRN (21:32)
[2019-10-03] MEDS: LEVOTHYROXINE NA 25 MCG TABLET (FP) PO SCH (06:05)
[2019-10-03 07:14] VITALS: PULSE 74; TEMP 97.1
[2019-10-03] MEDS: MULTIVIT-MINERALS ORAL LIQUID PO SCH (09:18)
[2019-10-03] MEDS: PERPHENAZINE 4 MG TABLET PO SCH (09:19)
[2019-10-03] MEDS: hydrOXYzine PAMOATE 25 MG CAPSULE (FP) PO PRN (09:19)
[2019-10-03] MEDS: SERTRALINE HCL 50 MG TABLET (FP) PO SCH (09:19)
[2019-10-03] MEDS: CYANOCOBALAMIN 1,000 MCG TABLET (FP) PO SCH (09:19)
[2019-10-03] MEDS: PANTOPRAZOLE 40 MG TABLET PO SCH (09:19)
--- NOTE | 2019-10-03 09:23 | PN ---
[facility] Progress Note Note: Patient is scheduled for discharge today. Scripts for 30 days supply of medications(Trilafon 4 mg/day, Zoloft 100 mg/day, Trazadone 50 mg/hs) are electronically transmitted to [facility] [address] [place] [id number]
--- NOTE | 2019-10-03 09:31 | DS ---
[facility] Rehab Discharge Summary - [facility] Rehab Discharge Summary Admission Date: 09/06/19 Discharge Date: 10/03/19 - History Present History: Alcohol dependence - Discharge Physical Exam Vital Signs: Vital Signs Temperature 97.1 F L 10/03/19 06:05 Pulse Rate 74 10/03/19 06:05 Respiratory Rate 18 10/03/19 06:05 Blood Pressure 147/72 10/03/19 06:05 O2 Sat by Pulse Oximetry (%) 98 10/03/19 06:05 Ambulatory Orders Multivit-Min/Iron Fum/Folic AC [Tmcjy-Emdbuxy-Xytylzto Tablet] 1 each PO DAILY 03/18/17 Sertraline HCl [Zoloft -] 100 mg PO DAILY 03/18/17 traZODone HCL [Desyrel -] 50 mg PO HS 03/18/17 Atorvastatin Ca [Lipitor] 20 mg PO DAILY #14 tablet 10/02/19 Cyanocobalamin [Vitamin B12 -] 1,000 mcg PO DAILY #20 tablet 10/02/19 Esomeprazole Magnesium 40 mg PO DAILY 14 Days #14 capsule. 10/02/19 Levothyroxine [Synthroid -] 50 mcg PO DAILY #14 tablet 10/02/19 Perphenazine [Trilafon -] 4 mg PO DAILY #30 tablet 10/03/19 Sertraline HCl [Zoloft] 100 mg PO DAILY #30 tablet 10/03/19 traZODone HCL [Desyrel -] 50 mg PO HS PRN #30 tablet 10/03/19 ros: patient denies shakes, sweating, alcohol cravings, anxiety/restlessness and headaches. pe alert and oriented x 3 skin warm and dry +perrla, eoms intact bl car s1s2 resp cta bl ext full rom, amb ad shayne no tremors denies si/hi a/p: alcohol dependence hld hypothyroidism patient medically stable for discharge aftercare referral made for [facility] and [place] OTP-appt 10/03/2019 11am - Treatment Discharge Condition: Discharge condition good Hospital Course: Patient discharged from rehab today for alcohol dependence. She is medically stable for d/c and denies S/H ideation. During course of treatment, patient attended group meetings, evaluated and treated by psych team and attended 1:1 sessions by counseling team. Patient also sustained fall while as inpatient and evaluated and treated by medical team at [facility]. Patient returned to treatment after cleared by ER. Aftercare arranged for [facility], appt scheduled today at 11am. Patient is motivated to maintain sobriety and medically advised to follow up with PCP as recommended. Ambulatory Orders Multivit-Min/Iron Fum/Folic AC [Bzgqw-Lhhzgcu-Hbowzgxg Tablet] 1 each PO DAILY 03/18/17 Sertraline HCl [Zoloft -] 100 mg PO DAILY 03/18/17 traZODone HCL [Desyrel -] 50 mg PO HS 03/18/17 Atorvastatin Ca [Lipitor] 20 mg PO DAILY #14 tablet 10/02/19 Cyanocobalamin [Vitamin B12 -] 1,000 mcg PO DAILY #20 tablet 10/02/19 Esomeprazole Magnesium 40 mg PO DAILY 14 Days #14 capsule. 10/02/19 Levothyroxine [Synthroid -] 50 mcg PO DAILY #14 tablet 10/02/19 Perphenazine [Trilafon -] 4 mg PO DAILY #30 tablet 10/03/19 Sertraline HCl [Zoloft] 100 mg PO DAILY #30 tablet 10/03/19 traZODone HCL [Desyrel -] 50 mg PO HS PRN #30 tablet 10/03/19 - Medication Discharge Medications: Ambulatory Orders Multivit-Min/Iron Fum/Folic AC [Ovfzk-Qowexux-Jlsbkuhn Tablet] 1 each PO DAILY 03/18/17 Sertraline HCl [Zoloft -] 100 mg PO DAILY 03/18/17 traZODone HCL [Desyrel -] 50 mg PO HS 03/18/17 Atorvastatin Ca [Lipitor] 20 mg PO DAILY #14 tablet 10/02/19 Cyanocobalamin [Vitamin B12 -] 1,000 mcg PO DAILY #20 tablet 10/02/19 Esomeprazole Magnesium 40 mg PO DAILY 14 Days #14 capsule. 10/02/19 Levothyroxine [Synthroid -] 50 mcg PO DAILY #14 tablet 10/02/19 Perphenazine [Trilafon -] 4 mg PO DAILY #30 tablet 10/03/19 Sertraline HCl [Zoloft] 100 mg PO DAILY #30 tablet 10/03/19 traZODone HCL [Desyrel -] 50 mg PO HS PRN #30 tablet 10/03/19 - Medication-Assisted Treatment (MAT) Medication-Assisted Treatment (MAT): No MAT Follow-up Referral: Mervat Keane-appt 10/03/2019 at 11am - Discharge Instructions Diet, activity, other medical instructions: Diet: Reg as tolerated Activity: as shayne as tolerated Other medical instructions: f/u with pcp as recommended - Follow-up Referral Minutes to complete discharge: 35 - AMA Did Patient Leave Against Medical Advice: No
== END 2019-10-03 09:35 | disposition home or self-care (01) | DRG 895 ==
LOC: YASAS 12:16 → Y3W 12:17
PROVIDERS: ADMIT Allergy & Immunology; ATTEND Allergy & Immunology
PROC: HZ42ZZZ Group Counseling for Substance Abuse Treatment, Cognitive-Behavioral (ICD-10-PCS; principal; 2019-09-06)
DX: F10.20 Alcohol dependence, uncomplicated (principal); F20.0 Paranoid schizophrenia; F10.282 Alcohol dependence with alcohol-induced sleep disorder; E78.5 Hyperlipidemia, unspecified; E03.9 Hypothyroidism, unspecified; G47.00 Insomnia, unspecified; Z85.828 Personal history of other malignant neoplasm of skin; K21.9 Gastro-esophageal reflux disease without esophagitis; Z88.0 Allergy status to penicillin; Z86.69 Personal history of other diseases of the nervous system and sense organs

== ENCOUNTER 2019-09-17 22:34 | Emergency (ER) | payer OTHER ==
[2019-09-17 22:49] VITALS: TEMP 98; BMI 26.2
--- NOTE | 2019-09-17 23:52 | PDOC ---
History of Present Illness - General Chief Complaint: Injury Stated Complaint: FALL Time Seen by Provider: 09/17/19 22:53 History Source: Patient Exam Limitations: No Limitations - History of Present Illness Initial Comments: 09/17/19 23:53 HISTORY OF PRESENT ILLNESS: 74-year-old woman past medical history of paranoid schizophrenia, alcohol abuse (currently admitted at [facility] for detox with 16 days since last drink) who presents emergency department for evaluation of sacral pain status post fall off a chair onto a hard floor. Patient reports she was sitting at her chair a lot [facility] slouching when she slipped off the front of the chair landing on non-padded floor. Patient was able to get off the floor without assistance and was referred to emergency department for evaluation. Patient currently reports her pain at 3/10 located in her sacrum. She denies any radiation of the pain, incontinence of bladder or bowel, urinary retention, saddle anesthesia, foot drop. No recent travel or sick contacts. PAST MEDICAL HISTORY: See HPI SURGICAL HISTORY: Denies ALLERGIES: Penicillin REVIEW OF SYSTEMS General/Constitutional: Denies fever or chills. Denies weakness, weight change. HEENT: Denies change in vision. Denies ear pain or discharge. Denies sore throat. Cardiovascular: Denies chest pain or shortness of breath. Respiratory: Denies cough, wheezing, or hemoptysis. Gastrointestinal: Denies nausea, vomiting, diarrhea or constipation. Denies rectal bleeding. Genitourinary: Denies dysuria, frequency, or change in urination. Musculoskeletal: See HPI Skin and breasts: Denies rash or easy bruising. Neurologic: Denies headache, vertigo, loss of consciousness, or loss of sensation. Psychiatric: Denies depression or anxiety. Endocrine: Denies increased thirst. Denies abnormal weight change. Hematologic/Lymphatic: Denies anemia, easy bleeding, or history of blood clots. Allergic/Immunologic: Denies hives or skin allergy. Denies latex allergy. PHYSICAL EXAM General Appearance: Well-appearing, appropriately dressed. No apparent distress, no intoxication. Musculoskeletal/Extremities: Normal inspection. FROM of all extremities, normal capillary refill. Pelvis Stable. No CVA tenderness. No tenderness to extremities, pedal edema, swelling, erythema or deformity. No bony tenderness upon palpation of the bones of the lumbar spine, sacrum, pelvis or bilateral lower extremities. Neurovascularly intact. Integumentary: Appropriate color, dry, warm. No cyanosis, erythema, jaundice or rash Neurologic: supervisor net making II-XII intact. Fully oriented, alert. Appropriate mood/affect. Motor strength 5/5. No appreciable EOM palsy, facial droop or sensory deficit. Past History - Medical History Allergies/Adverse Reactions: Allergies Allergy/AdvReac Type Severity Reaction Status Date / Time Penicillins Allergy Intermediate Rash Verified 09/17/19 22:40 Home Medications: Ambulatory Orders Cyanocobalamin [Vitamin B12 -] 1,000 mcg PO DAILY 03/18/17 Multivit-Min/Iron Fum/Folic AC [Atiwc-Fzjkanm-Ivtblnnl Tablet] 1 each PO DAILY 03/18/17 Perphenazine [Trilafon] 4 mg PO DAILY 03/18/17 Sertraline HCl [Zoloft -] 100 mg PO DAILY 03/18/17 traZODone HCL [Desyrel -] 50 mg PO HS 03/18/17 Atorvastatin Ca [Lipitor] 20 mg PO DAILY #14 tablet 03/22/17 Levothyroxine [Synthroid -] 50 mcg PO DAILY #14 tablet 03/22/17 Esomeprazole Magnesium 40 mg PO DAILY 14 Days #14 capsule. 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 ) Cardiac Disorders: Yes (Hyperlipidemia) CVA: No COPD: No CHF: No Dementia: No Diabetes: No GI Disorders: Yes (GERD) Disorders: No HTN: No Hypercholesterolemia: Yes Kidney Stones: No Liver Disease: No Seizures: No Thyroid Disease: Yes (Hypothyroid) Other medical history: 09/17/19 16 days with no alcohol - Surgical History Abdominal Surgery: No Appendectomy: No Cardiac Surgery: No Cholecystectomy: No Lung Surgery: No Neurologic Surgery: No Orthopedic Surgery: No - Reproductive History PID: No - Psycho-Social/Smoking History Smoking History: Never smoked - Substance Abuse Hx (Audit-C & DAST Scrn) How often the patient has a drink containing alcohol: 4 0r more times/wk Score: In Men: 4 or > Positive; In Women: 3 or > Positive: 4 Screen Result (Pos requires Nsg. Audit-10AR): Positive Trauma Specific PMHX - Complaint Specific PMHX Arthritis: No *Physical Exam - Vital Signs Last Vital Signs Temp Pulse Resp BP Pulse Ox 98 F 77 18 193/88 H 99 09/17/19 22:37 09/17/19 22:37 09/17/19 22:37 09/17/19 22:37 09/17/19 22:37 ED Treatment Course - RADIOLOGY Radiology Studies Ordered: Category Date Time Status SACRUM [RAD] Stat Radiology 09/17/19 23:33 Ordered Medical Decision Making - Medical Decision Making 09/17/19 23:55 A/P: 74-year-old woman with sacral pain status post slip and fall off a chair. No bony tenderness, crepitus, deformity or step-off upon palpation of the bones of the lumbar spine, sacrum, bilateral pelvis or bilateral lower extremities. Rectal exam deferred as patient has no neurologic findings Neurovascularly intact distal to injury. Patient is refusing pain medication at this time Sacral x-rays read by me: No obvious fracture present. Discharge back to [facility] 09/18/19 00:00 Discharge - Discharge Information Problems reviewed: Yes Clinical Impression/Diagnosis: Fall Qualifiers: Encounter type: initial encounter Qualified Code(s): W19.XXXA - Unspecified fall, initial encounter Condition: Stable Disposition: HOME - Admission No - Follow up/Referral Referrals: ON STAFF,NOT [Primary Care Provider] - - Patient Discharge Instructions Additional Instructions: May give patient Tylenol 975 mg or Motrin 600 mg as needed for pain. Return to emergency department for any new or worsening symptoms. - Post Discharge Activity
[2019-09-18 03:14] VITALS: BP 164/78; PULSE 81
== END 2019-09-18 02:40 | disposition short-term general hospital (02) ==
LOC: JER 22:34
DX: M53.3 Sacrococcygeal disorders, not elsewhere classified (principal); W19.XXXA Unspecified fall, initial encounter
CPT/HCPCS: 72220-TC-FY; 99283-25